=== PATIENT | male | born 1935 | race Two or more races ===

== ENCOUNTER 2017-02-01 15:23 | Inpatient (IN) | payer MEDICARE, BC ==
--- NOTE | 2017-02-01 15:55 | C.PDOC ---
History Of Present Illness 82 y/o male with Hx of HTN and DM presents to ED with complaints of general weakness and urine frequency for 2-3 days. As per at bedside patient was found on floor when she got home. At ED patient is febrile with a 102.0 temperature. Patient denies n/v/d, cp, sob, loc, toscano or any other complaints at this time. Time Seen by Provider: 02/01/17 15:41 History Per: Patient History/Exam Limitations: no limitations Onset/Duration Of Symptoms: Days Current Symptoms Are (Timing): Still Present Past Medical History Reviewed: Historical Data, Nursing Documentation, Vital Signs Vital Signs: Last Vital Signs Temp 99.4 F 02/01/17 18:49 Pulse 105 H 02/01/17 18:49 Resp 20 02/01/17 18:49 BP 152/80 H 02/01/17 18:49 Pulse Ox 98 02/01/17 18:49 - Medical History PMH: Diabetes, Fractures, HTN, Hypercholesterolemia Family History: States: Unknown Family Hx - Social History Hx Tobacco Use: No Hx Alcohol Use: No Hx Substance Use: No - Immunization History Hx Tetanus Toxoid Vaccination: No Hx Influenza Vaccination: Yes Hx Pneumococcal Vaccination: Yes Review Of Systems Constitutional: Positive for: Weakness. Negative for: Fever, Chills Cardiovascular: Negative for: Chest Pain Respiratory: Negative for: Shortness of Breath Gastrointestinal: Negative for: Nausea, Vomiting, Diarrhea Genitourinary: Positive for: Frequency. Negative for: Dysuria Musculoskeletal: Negative for: Back Pain Skin: Negative for: Rash Neurological: Negative for: Headache Physical Exam - Physical Exam Additional Physical Exam Comments: Constitutional: Generally weak Head: Normocephalic. Atraumatic. Eyes: PERRL. ENT: Dry mucous membranes. Neck: Supple. Cardiovascular: Tachycardia. Radial pulse 2+ bilaterally. Chest: No tenderness. Respiratory: Clear to auscultation bilaterally. GI: Soft. Nontender. Nondistended. Back: No CVA tenderness. Musculoskeletal: No tenderness or swelling of extremities. Skin: No rash. Warm Neurologic: Alert, no focal deficit. ED Course And Treatment - Laboratory Results Result Diagrams: 02/01/17 16:26 02/01/17 16:26 O2 Sat by Pulse Oximetry: 100 (RA) Pulse Ox Interpretation: Normal Medical Decision Making Medical Decision Making: EKG NSR Sinus tachy 125 bpm, no ST/T wave changes CXR no acute disease. Patient with UTI. Antibiotics and IVF given. HR improved to 110 and patient states he feels better. No hypotension at any point. Dr. Mckeon accepts to his service. Disposition - Disposition Disposition: HOSPITALIZED Disposition Time: 14:49 Condition: GUARDED - POA Core Measure Indicators: Code Sepsis - Clinical Impression Clinical Impression: UTI (urinary tract infection), Sepsis - Scribe Statement The provider has reviewed the documentation as recorded by the Kathi Ribera All medical record entries made by the Kathi were at my direction and personally dictated by me. I have reviewed the chart and agree that the record accurately reflects my personal performance of the history, physical exam, medical decision making, and the department course for this patient. I have also personally directed, reviewed, and agree with the discharge instructions and disposition.
[2017-02-01 16:26] LABS: VENOUS BLOOD GAS BASE EXCESS -4.8 mmol/L (0.0-2.0); VENOUS BLOOD GAS PCO2 34 mmHg (40-60); VENOUS BLOOD PH 7.37 (7.32-7.43)
[2017-02-01 16:32] LABS: BASO % 0.2 % (0.0-2.0); HEMATOCRIT 36.6 % (35.0-51.0); LYMPH # 0.2 K/uL (1.0-4.3); LYMPH % 2.1 % (20.0-40.0); MEAN CELL VOLUME 91.1 fL (80.0-94.0); MEAN CORPUSCULAR HGB CONC 32.9 g/dL (33.0-37.0); MEAN PLATELET VOLUME 8.2 fL (7.2-11.7); MONO # 0.5 K/uL (0.0-0.8); MONO % 4.1 % (0.0-10.0); PLATELET COUNT 146 K/uL (130-400); RED CELL DISTRIBUTION WIDTH 14.1 % (11.5-14.5); WHITE BLOOD COUNT 11.9 K/uL (4.8-10.8)
[2017-02-01 16:37] LABS: POTASSIUM 4.7 mmol/L (3.6-5.2)
[2017-02-01] MEDS ORDERED: Cefepime 1 GM in Sodium Chloride 0.9% 50 ML IVPB ONE (16:38)
[2017-02-01 16:40] LABS: ALB/GLOB RATIO 1.1 (1.0-2.1); BILIRUBIN,TOTAL 1.3 mg/dL (0.2-1.3); CALCIUM 9.5 mg/dl (8.6-10.4); TOTAL PROTEIN 7.4 g/dL (6.3-8.3)
[2017-02-01 16:41] LABS: MAGNESIUM 1.5 mg/dL (1.6-2.3)
[2017-02-01 16:58] LABS: INR 1.5
[2017-02-01] MEDS ORDERED: Cefepime 1 GM in Sodium Chloride 0.9% 100 ML IVPB ONE (17:00)
[2017-02-01] MEDS ORDERED: Vancomycin 1 GM 1 GM/250 ML BAG IVPB ONE (17:34)
[2017-02-01 18:01] LABS: BASOPHIL 1 % (0-2); NEUTROPHIL 85 % (50-75); TOTAL CELLS COUNTED 100
[2017-02-01 18:09] LABS: RBC URINE 2 /hpf (0-3); URINE BACTERIA MOD (<OCC); URINE BILIRUBIN NEGATIVE (NEGATIVE); URINE BLOOD 3+ (NEGATIVE); URINE COLOR Amber (YELLOW); URINE GLUCOSE (UA) 1+ mg/dL (Normal); URINE KETONE TRACE mg/dL (NEGATIVE); URINE LEUKOCYTE ESTERASE 1+ Leu/uL (Negative); URINE PROTEIN 2+ mg/dL (NEGATIVE); URINE UROBILINOGEN NORMAL mg/dL (0.2-1.0); WBC URINE 31 /hpf (0-5)
[2017-02-01 19:13] LABS: VENOUS BLOOD GAS PCO2 37 mmHg (40-60); VENOUS BLOOD PH 7.36 (7.32-7.43)
[2017-02-01] MEDS: Sodium Chloride 0.45% 1,000 ML IV SCH (20:51)
[2017-02-01] MEDS: (Novolin R) Insulin Human Regular 100 units/ml vial SC SCH (22:30)
--- NOTE | 2017-02-01 22:34 | CP.PCM.HP ---
History of Present Illness - History of Present Illness History of Present Illness: COMPREHENSIVE HISTORY & PHYSICAL EXAM HPI ADMITTED WITH CODE SEPSIS PT WAS FOUNG ON FLOOR BY DISORIENTED . W/U SHOWED UTI WITH TEMP. 102F AND DEHYDRATION . PT HAS PRIOUS H/O UTI S. PT RESPONDED WITH IV FLUIDS AND IV AB PAST HIST. HTN/DM/HIGH CHOLESTEROL /COPD PERSONAL HIST: Smoking. N Alcohol. N Allergy N Travel_- . FAMILY HIST : ROS : Constitutional CHILS WITH CMS Eyes: Negative for redness, swelling, itching, discharge, vision changes, blurry vision, double vision, glaucoma, cataracts, Ears: Negative for hearing loss, ringing, , tinnitus, vertigo Nose: Negative for rhinorrhea, stuffiness, sniffing, itching, postnasal drip, discoloration, nasal congestion and epistaxis. Throat: Negative for throat clearing, sore throat, hoarseness, difficulty swallowing and difficulty speaking. Respiratory: Negative for cough, , sputum production, chest tightness, wheezing, pleuritic chest pain ,daytime somnolence, chronic cough, hemoptysis, snoring at night, Cardiovascular: Negative for chest pain, palpitations, orthopnea, PND, Edema of legs, leg cramps, angina, claudication, , irregular heartbeat, Neurology: Negative for irritability, muscle weakness, numbness and tingling, seizures, tremors, migraines, slurred speech, syncope, memory loss, mood changes , recurrent headaches Gastrointestinal: Negative for difficulty swallowing, diarrhea, constipation, black stools, rectal bleeding, nausea, flatulence, reflux, poor appetite, changes in bowel habits, abdominal pain Genitourinary POS for frequent urination NO , hematuria, discharge, incontinence, urinary retention, POS frequent UTI, Psychiatric: Negative for depression, anxiety/panic, suicidal tendencies, Musculoskeletal: Negative for swollen joints, back pain, , neck pain, morning stiffness of joints, . Skin: Negative for rash, ulcers, itching, dry skin and pigmented lesions. P/E: Constitutional: Appears stated age and in no apparent distress. Head: Normocephalic. Ears: External ear canals patent without inflammation. Tympanic membranes intact with normal light reflex and landmark. Eyes: Pupils are central, bilaterally equal, symmetrical and reacts to light with normal movements and no icterus or pallor. Nose: External nares are patent. Mucosa is pink Mouth-Throat: Good general appearance and condition. No post-pharyngeal/oropharyngeal erythema and tonsillar hypertrophy. Good dental hygiene. Neck-Lymphatic: Neck is supple with normal ROM, no thyromegaly, lymph nodes or masses. JVD is normal with no carotid bruit. Lungs: Clear to percussion and auscultation with bilateral normal air entry. Cardiovascular: S1 and S2 are normal with no murmurs, gallops and rub. GI Exam: No hepatomegaly. Abdomen is soft and non-tender. No Organomegaly , masses or hernias are evident and bowel sounds are normal and active. Neurology: Higher function and all cranial nerves intact, with no gross motor or sensory deficit. Superficial and deep reflexes are normal with downwards planters. No cerebellar deficit with normal gait. Musculoskeletal: No tender spots with normal curvature of the spine with no swelling or restricted ROM of the small and large joints. Extremities: Homans sign absent. Intact pulses with no pitting edema, calf tenderness or skin color changes. Skin: No rash, eruptions or abnormal skin pigmentation LAB/RADIOLOGY: ASSESMENT : SEPSI WITH CEREBRAL DYSFUNCTION TRANSIENT SEC TO INFECTION DM/HTN COPD PLAN: SEE ORDERS Present on Admission - Present on Admission Any Indicators Present on Admission: No Past Patient History - Past Social History Smoking Status: Never Smoked - CARDIAC Hx Hypercholesterolemia: Yes Hx Hypertension: Yes - PULMONARY Hx Respiratory Disorders: No - NEUROLOGICAL Hx Neurological Disorder: No - HEENT Hx HEENT Problems: Yes Hx Cataracts: Yes - RENAL Hx Chronic Kidney Disease: No - ENDOCRINE/METABOLIC Hx Endocrine Disorders: Yes Hx Diabetes Mellitus Type 2: Yes - HEMATOLOGICAL/ONCOLOGICAL Hx Blood Disorders: No - INTEGUMENTARY Hx Dermatological Problems: No - MUSCULOSKELETAL/RHEUMATOLOGICAL Hx Fractures: Yes - GASTROINTESTINAL Hx Gastrointestinal Disorders: No - GENITOURINARY/GYNECOLOGICAL Hx Genitourinary Disorders: Yes Hx Incontinence: Yes - PSYCHIATRIC Hx Substance Use: No - SURGICAL HISTORY Hx Breast Biopsy: Yes Hx Joint Replacement: Yes Hx Musculoskeletal Surgery: Yes Other/Comment: Hip and bilateral knee replacement - ANESTHESIA Hx Anesthesia: Yes Hx Anesthesia Reactions: No Hx Malignant Hyperthermia: No Meds Allergies/Adverse Reactions: Allergies Allergy/AdvReac Type Severity Reaction Status Date / Time No Known Allergies Allergy Verified 02/01/17 15:47 Results - Vital Signs Recent Vital Signs: Last Vital Signs Temp 101.2 F H 02/01/17 20:52 Pulse 133 H 02/01/17 20:42 Resp 30 H 02/01/17 20:42 BP 163/96 H 02/01/17 20:42 Pulse Ox 97 02/01/17 20:42 - Labs Result Diagrams: 02/02/17 07:24 02/02/17 07:24 Labs: Laboratory Results - last 24 hr 02/01/17 02/01/17 19:05 22:26 pO2 17 L VBG pH 7.36 VBG pCO2 37 L VBG HCO3 19.8 VBG Total CO2 22.0 VBG O2 Sat (Calc) 26.9 L VBG Base Excess -4.0 L VBG Potassium 4.0 Sodium 139.0 Chloride 108.0 H Glucose 289 H Lactate 2.8 H POC Glucose (mg/dL) 219 H Venous Blood Potassium 4.0
--- NOTE | 2017-02-01 23:51 | CP.PCM.CON ---
History of Present Illness - History of Present Illness History of Present Illness: INFECTIOUS DISEASE CONSULT: DICTATED # DICTATION [id number] SEE REPORTS. Past Patient History - Past Social History Smoking Status: Never Smoked - CARDIAC Hx Hypercholesterolemia: Yes Hx Hypertension: Yes - PULMONARY Hx Respiratory Disorders: No - NEUROLOGICAL Hx Neurological Disorder: No - HEENT Hx HEENT Problems: Yes Hx Cataracts: Yes - RENAL Hx Chronic Kidney Disease: No - ENDOCRINE/METABOLIC Hx Endocrine Disorders: Yes Hx Diabetes Mellitus Type 2: Yes - HEMATOLOGICAL/ONCOLOGICAL Hx Blood Disorders: No - INTEGUMENTARY Hx Dermatological Problems: No - MUSCULOSKELETAL/RHEUMATOLOGICAL Hx Fractures: Yes - GASTROINTESTINAL Hx Gastrointestinal Disorders: No - GENITOURINARY/GYNECOLOGICAL Hx Genitourinary Disorders: Yes Hx Incontinence: Yes - PSYCHIATRIC Hx Substance Use: No - SURGICAL HISTORY Hx Breast Biopsy: Yes Hx Joint Replacement: Yes Hx Musculoskeletal Surgery: Yes Other/Comment: Hip and bilateral knee replacement - ANESTHESIA Hx Anesthesia: Yes Hx Anesthesia Reactions: No Hx Malignant Hyperthermia: No Meds Allergies/Adverse Reactions: Allergies Allergy/AdvReac Type Severity Reaction Status Date / Time No Known Allergies Allergy Verified 02/01/17 15:47 - Medications Medications: Current Medications Acetaminophen (Tylenol 325mg Tab) 975 mg PO ONCE PRN PRN Reason: Fever >100.4 F Last Admin: 02/01/17 16:15 Dose: 975 mg Acetaminophen (Tylenol 325mg Tab) 650 mg PO Q6 PRN PRN Reason: Fever >100.4 F Last Admin: 02/01/17 20:52 Dose: 650 mg Amlodipine Besylate (Norvasc) 5 mg PO DAILY [facility] Aspirin (Ecotrin) 81 mg PO DAILY [facility] Heparin Sodium (Porcine) (Heparin) 5,000 units SC BID [facility] Home Med (Metformin [Glucophage]) 1,000 mg PO DAILY [facility] Home Med (Pravastatin Sodium [Pravachol]) 10 mg PO DAILY [facility] Home Med (Ranitidine Hcl [Ranitidine Hcl]) 300 mg PO DAILY [facility] Ceftriaxone Sodium (Rocephin Iv 1 Gm Duplex) 50 mls @ 100 mls/hr IVPB DAILY [facility] Sodium Chloride (Sodium Chloride 0.45%) 1,000 mls @ 80 mls/hr IV .[id number] [facility] Last Admin: 02/01/17 20:51 Dose: 80 mls/hr Insulin Human Regular (Novolin R) 0 unit SC ACHS [facility] PRN Reason: Protocol Lisinopril (Zestril) 40 mg PO DAILY [facility] Pantoprazole Sodium (Protonix Ec Tab) 40 mg PO DAILY [facility] Terazosin HCl (Hytrin) 5 mg PO DAILY [facility] Results - Vital Signs Recent Vital Signs: Last Vital Signs Temp 100.7 F H 02/01/17 22:38 Pulse 126 H 02/01/17 22:40 Resp 20 02/01/17 22:38 BP 144/84 02/01/17 22:38 Pulse Ox 98 02/01/17 22:38 - Labs Result Diagrams: 02/02/17 07:24 02/02/17 07:24 Labs: Laboratory Results - last 24 hr 02/01/17 02/01/17 19:05 22:26 pO2 17 L VBG pH 7.36 VBG pCO2 37 L VBG HCO3 19.8 VBG Total CO2 22.0 VBG O2 Sat (Calc) 26.9 L VBG Base Excess -4.0 L VBG Potassium 4.0 Sodium 139.0 Chloride 108.0 H Glucose 289 H Lactate 2.8 H POC Glucose (mg/dL) 219 H Venous Blood Potassium 4.0
[2017-02-01] MEDS ORDERED: Aluminum Hydroxide/Magnesium Hydroxide Susp (30 mL) PO PRN (23:54)
[2017-02-02] MEDS ORDERED: Albuterol-Ipratrop 3 mg / 0.5 (3 ml) UD INH STA (06:37)
--- NOTE | 2017-02-02 06:42 | CP.PCM.PN ---
Subjective - Date & Time of Evaluation Date of Evaluation: 02/02/17 Time of Evaluation: 06:38 - Subjective Subjective: Complaining of shortness of breath. Says it has gotten worse over night. Objective - Vital Signs/Intake and Output Vital Signs (last 24 hours): Temp Pulse Resp BP Pulse Ox 98.3 F 107 H 20 165/80 H 97 02/02/17 04:30 02/02/17 04:30 02/02/17 04:30 02/02/17 04:30 02/02/17 04:30 Intake and Output: 02/01/17 02/02/17 18:59 06:59 Intake Total 320 Output Total 200 Balance 120 - Medications Medications: Current Medications Acetaminophen (Tylenol 325mg Tab) 975 mg PO ONCE PRN PRN Reason: Fever >100.4 F Last Admin: 02/01/17 16:15 Dose: 975 mg Acetaminophen (Tylenol 325mg Tab) 650 mg PO Q6 PRN PRN Reason: Fever >100.4 F Last Admin: 02/02/17 06:15 Dose: 650 mg Albuterol/Ipratropium (Duoneb 3 Mg/0.5 Mg (3 Ml) Ud) 3 ml INH RSTAT STA Stop: 02/02/17 06:38 Amlodipine Besylate (Norvasc) 5 mg PO DAILY [facility] Aspirin (Ecotrin) 81 mg PO DAILY [facility] Heparin Sodium (Porcine) (Heparin) 5,000 units SC BID [facility] Home Med (Metformin [Glucophage]) 1,000 mg PO DAILY [facility] Home Med (Pravastatin Sodium [Pravachol]) 10 mg PO DAILY [facility] Home Med (Ranitidine Hcl [Ranitidine Hcl]) 300 mg PO DAILY [facility] Ceftriaxone Sodium (Rocephin Iv 1 Gm Duplex) 50 mls @ 100 mls/hr IVPB DAILY [facility] Sodium Chloride (Sodium Chloride 0.45%) 1,000 mls @ 80 mls/hr IV .[id number] [facility] Last Admin: 02/01/17 20:51 Dose: 80 mls/hr Insulin Human Regular (Novolin R) 0 unit SC ACHS [facility] PRN Reason: Protocol Last Admin: 02/01/17 22:30 Dose: Not Given Lisinopril (Zestril) 40 mg PO DAILY [facility] Pantoprazole Sodium (Protonix Ec Tab) 40 mg PO DAILY [facility] Terazosin HCl (Hytrin) 5 mg PO DAILY [facility] - Labs Labs: PT 16.8 SECONDS (9.7-12.2) H 02/01/17 16:26 INR 1.5 02/01/17 16:26 APTT 28 SECONDS (21-34) 02/01/17 16:26 - Respiratory Exam Respiratory Exam: Decreased Breath Sounds, Wheezes Assessment and Plan - Assessment and Plan (Free Text) Plan: 1.) Wheezing and shortness of breath * Duoneb 3ml
[2017-02-02 07:37] LABS: BASO % 0.2 % (0.0-2.0); HEMATOCRIT 32.9 % (35.0-51.0); LYMPH # 0.2 K/uL (1.0-4.3); LYMPH % 2.9 % (20.0-40.0); MEAN CELL VOLUME 90.8 fL (80.0-94.0); MEAN CORPUSCULAR HEMOGLOBIN 31.1 pg (27.0-31.0); MEAN CORPUSCULAR HGB CONC 34.2 g/dL (33.0-37.0); MEAN PLATELET VOLUME 8.4 fL (7.2-11.7); MONO # 0.3 K/uL (0.0-0.8); MONO % 3.8 % (0.0-10.0); RED CELL DISTRIBUTION WIDTH 13.9 % (11.5-14.5); WHITE BLOOD COUNT 8.3 K/uL (4.8-10.8)
[2017-02-02 07:48] LABS: PLATELET COUNT 117 K/uL (130-400)
[2017-02-02 08:04] LABS: POTASSIUM 3.9 mmol/L (3.6-5.2)
[2017-02-02 08:06] LABS: BILIRUBIN,DIRECT 0.4 mg/dL (0.0-0.4); BILIRUBIN,TOTAL 1.3 mg/dL (0.2-1.3); TOTAL PROTEIN 6.5 g/dL (6.3-8.3)
[2017-02-02 08:07] LABS: CALCIUM 8.4 mg/dl (8.6-10.4)
[2017-02-02] MEDS: (Novolin R) Insulin Human Regular 100 units/ml vial SC SCH ×4 (08:30→22:27)
[2017-02-02] MEDS: Sodium Chloride 0.45% 1,000 ML IV SCH ×2 (09:34→22:29)
[2017-02-02] MEDS: Pantoprazole 40 mg EC Tab PO SCH (09:41)
[2017-02-02] MEDS ORDERED: cefTRIAXone IV 1 gm in Dextros 50 ML IVPB SCH (10:00)
[2017-02-02 11:49] LABS: NEUTROPHIL 91 % (50-75); TOTAL CELLS COUNTED 100
--- NOTE | 2017-02-02 13:40 | RAD ---
HISTORY: Sepsis Patient COMPARISON: No prior. FINDINGS: LUNGS: No active pulmonary disease. PLEURA: No significant pleural effusion identified, no pneumothorax apparent. CARDIOVASCULAR: Normal. OSSEOUS STRUCTURES: No significant abnormalities. VISUALIZED UPPER ABDOMEN: Normal. OTHER FINDINGS: None. IMPRESSION: No active disease.
--- NOTE | 2017-02-02 14:40 | CP.PCM.PN ---
Subjective - Date & Time of Evaluation Date of Evaluation: 02/02/17 Time of Evaluation: 14:38 - Subjective Subjective: CHIEF COMPLAINTS TODAY : MORE ALERT HAD SOB IN AM AND RESPONDED WITH NEBULISER ROS. HEENT : N. Resp : No cough, wheezing ,pleuritic CP ,or hemoptysis Cardio : No anginal CP, PND, orthopnea, palpitation GI : No abd.pain, n/v ,diarrhea or GI bleeding . PRODUCTION POTTER : No headache, vertigo, focal deficit. Musculoskel : No joint swelling , Derm : No rash Psych : Normal affect. Ext : No swelling ,calf pain PE. Pt. is alert awake in no distress. V.S As noted in the chart Head ,ear nose,throat and eyes : Normal. Neck : Supple with normal carotids. Lungs: Clear air entry. Heart : S1 & S2 normal with S4. No murmur. Abd : Soft non tender with normal bowel sounds. Neuro : Moves all ext. with no localized deficit. Ext : No edema with intact pulses.Non tender calves Derm : No rashes or decubitus ulcer. LABS/RADIOLOGY: BLOOD CULTURE POS GRAM -VE RODS ASSESSMENT/PLAN : IV AB PER ID NUTRITION D/W FAMILY Objective - Vital Signs/Intake and Output Vital Signs (last 24 hours): Temp Pulse Resp BP Pulse Ox 99.4 F 106 H 20 148/76 96 02/02/17 07:45 02/02/17 07:45 02/02/17 07:45 02/02/17 07:45 02/02/17 07:45 - Medications Medications: Current Medications Acetaminophen (Tylenol 325mg Tab) 975 mg PO ONCE PRN PRN Reason: Fever >100.4 F Last Admin: 02/01/17 16:15 Dose: 975 mg Acetaminophen (Tylenol 325mg Tab) 650 mg PO Q6 PRN PRN Reason: Fever >100.4 F Last Admin: 02/02/17 06:15 Dose: 650 mg Amlodipine Besylate (Norvasc) 5 mg PO DAILY [facility] Last Admin: 02/02/17 09:42 Dose: 5 mg Aspirin (Ecotrin) 81 mg PO DAILY [facility] Last Admin: 02/02/17 09:42 Dose: 81 mg Heparin Sodium (Porcine) (Heparin) 5,000 units SC BID [facility] Last Admin: 02/02/17 09:41 Dose: 5,000 units Home Med (Metformin [Glucophage]) 1,000 mg PO DAILY [facility] Last Admin: 02/02/17 11:00 Dose: Not Given Home Med (Pravastatin Sodium [Pravachol]) 10 mg PO DAILY [facility] Last Admin: 02/02/17 11:00 Dose: Not Given Home Med (Ranitidine Hcl [Ranitidine Hcl]) 300 mg PO DAILY [facility] Last Admin: 02/02/17 11:00 Dose: Not Given Ceftriaxone Sodium (Rocephin Iv 1 Gm Duplex) 50 mls @ 100 mls/hr IVPB DAILY [facility] Last Admin: 02/02/17 09:41 Dose: 100 mls/hr Sodium Chloride (Sodium Chloride 0.45%) 1,000 mls @ 80 mls/hr IV .[id number] [facility] Last Admin: 02/02/17 09:34 Dose: Not Given Insulin Human Regular (Novolin R) 0 unit SC ACHS [facility] PRN Reason: Protocol Last Admin: 02/02/17 12:30 Dose: 1 unit Lisinopril (Zestril) 40 mg PO DAILY [facility] Last Admin: 02/02/17 09:42 Dose: 40 mg Pantoprazole Sodium (Protonix Ec Tab) 40 mg PO DAILY [facility] Last Admin: 02/02/17 09:41 Dose: 40 mg Terazosin HCl (Hytrin) 5 mg PO DAILY [facility] Last Admin: 02/02/17 09:42 Dose: 5 mg - Labs Labs: 02/02/17 07:24 02/02/17 07:24 PT 16.8 SECONDS (9.7-12.2) H 02/01/17 16:26 INR 1.5 02/01/17 16:26 APTT 28 SECONDS (21-34) 02/01/17 16:26
[2017-02-02] MEDS ORDERED: Aztreonam 1 GM in Sodium Chloride 0.9% 100 ML IVPB ONE (17:00)
--- NOTE | 2017-02-02 18:57 | CP.PCM.PN ---
Subjective - Date & Time of Evaluation Date of Evaluation: 02/02/17 Time of Evaluation: 18:57 - Subjective Subjective: TEMP DOWN,99.6 +VE SOB IN AM RESPONDED TO NEBULIZER TREATMENT. ON O2 BY NASAL - CANNULA, PULSE OX 97% C/O FREQUENCY Objective - Vital Signs/Intake and Output Vital Signs (last 24 hours): Temp Pulse Resp BP Pulse Ox 99.6 F 124 H 20 144/74 97 02/02/17 15:48 02/02/17 16:41 02/02/17 15:48 02/02/17 16:41 02/02/17 15:48 Intake and Output: 02/02/17 02/02/17 06:59 18:59 Intake Total 320 350 Output Total 200 200 Balance 120 150 - Medications Medications: Current Medications Acetaminophen (Tylenol 325mg Tab) 975 mg PO ONCE PRN PRN Reason: Fever >100.4 F Last Admin: 02/01/17 16:15 Dose: 975 mg Acetaminophen (Tylenol 325mg Tab) 650 mg PO Q6 PRN PRN Reason: Fever >100.4 F Last Admin: 02/02/17 06:15 Dose: 650 mg Amlodipine Besylate (Norvasc) 5 mg PO DAILY [facility] Last Admin: 02/02/17 09:42 Dose: 5 mg Aspirin (Ecotrin) 81 mg PO DAILY [facility] Last Admin: 02/02/17 09:42 Dose: 81 mg Famotidine (Pepcid) 20 mg PO DAILY [facility] Heparin Sodium (Porcine) (Heparin) 5,000 units SC BID [facility] Last Admin: 02/02/17 09:41 Dose: 5,000 units Home Med (Metformin [Glucophage]) 1,000 mg PO DAILY [facility] Ceftriaxone Sodium (Rocephin Iv 1 Gm Duplex) 50 mls @ 100 mls/hr IVPB DAILY [facility] Last Admin: 02/02/17 09:41 Dose: 100 mls/hr Sodium Chloride (Sodium Chloride 0.45%) 1,000 mls @ 80 mls/hr IV .[id number] [facility] Last Admin: 02/02/17 09:34 Dose: Not Given Insulin Human Regular (Novolin R) 0 unit SC ACHS [facility] PRN Reason: Protocol Last Admin: 02/02/17 18:08 Dose: 4 unit Lisinopril (Zestril) 40 mg PO DAILY [facility] Last Admin: 02/02/17 09:42 Dose: 40 mg Metoprolol Tartrate (Lopressor) 50 mg PO Q12 [facility] Last Admin: 02/02/17 16:40 Dose: 50 mg Pantoprazole Sodium (Protonix Ec Tab) 40 mg PO DAILY [facility] Last Admin: 02/02/17 09:41 Dose: 40 mg Rosuvastatin Calcium (Crestor) 2.5 mg PO [facility] Terazosin HCl (Hytrin) 5 mg PO DAILY [facility] Last Admin: 02/02/17 09:42 Dose: 5 mg - Labs Labs: 02/02/17 07:24 02/02/17 07:24 PT 16.8 SECONDS (9.7-12.2) H 02/01/17 16:26 INR 1.5 02/01/17 16:26 APTT 28 SECONDS (21-34) 02/01/17 16:26 - Constitutional Appears: No Acute Distress - Eye Exam Eye Exam: EOMI, PERRL - ENT Exam ENT Exam: Normal Oropharynx - Neck Exam Neck Exam: Normal Inspection - Respiratory Exam Respiratory Exam: Prolonged Expiratory Phase, Wheezes - Cardiovascular Exam Cardiovascular Exam: REGULAR RHYTHM, +S1, +S2 - GI/Abdominal Exam GI & Abdominal Exam: Soft, Normal Bowel Sounds. absent: Organomegaly - Extremities Exam Extremities Exam: Normal Capillary Refill. absent: Calf Tenderness, Pedal Edema - Neurological Exam Neurological Exam: Awake, CN II-XII Intact, Oriented x3, Reflexes Normal - Psychiatric Exam Psychiatric exam: Normal Mood - Skin Skin Exam: Normal Color, Warm Assessment and Plan (1) Sepsis Assessment & Plan: BLOOD CULTURE +VE GNR URINE CULTURE +VE GNR DC IV ROCEPHIN PT. GIVEN AZACTAM 1GM IVPB X1 STAT. 02/02/17 START IV PRIMAXIN 500MG IVPB Q 8HRLY.02/02/17 Status: Acute (2) UTI (urinary tract infection) Assessment & Plan: URINE CULTURE +VE GRAM-NEGATIVE SHELLEY. iDENTIFICATION PENDING. pATIENT STARTED ON iv pRIMAXIN 500 MG EVERY 8 HOURLY 1 DOSE aZACTAM GIVEN 1 G. fOLLOW-UP CULTURES TO ADJUST ANTIBIOTICS. Status: Acute (3) HTN (hypertension) Status: Acute (4) Diabetes mellitus Status: Acute
[2017-02-02] MEDS: Albuterol-Ipratrop 3 mg / 0.5 (3 ml) UD INH SCH (19:58)
[2017-02-02] MEDS: Rosuvastatin Calcium 2.5 mg Tab PO SCH (21:04)
--- NOTE | 2017-02-02 21:23 | CON ---
DATE: 02/01/2017 REQUESTING PHYSICIAN: Dr. Mckeon. REASON FOR CONSULTATION: Sepsis and shortness of breath. HISTORY OF PRESENT ILLNESS: The patient is an 82-year-old male with a history of hypertension, diabe kevin mellitus, hypercholesterolemia, and a history of fractures who presents to the [facility] ER with complaints of generalized weakness and frequency of urine for the past 2-3 days. History obtai katherine mainly from the chart as well as from the patient who states that as per , the patient was fo und on the floor when she got home. The patient was brought to the ER and was found to be febrile to 102.0. Also, the patient's blood pressure was 152/80 with a rapid pulse and tachycardia. The patie nt had a code sepsis as temperature persisted up to 102 and the patient was appropriately cultured an d given vancomycin 1 gram 1 dose and also Maxipime 1 gram 1 dose. History is very sketchy as the pat ient unable to give much details. The patient also had leucocytosis with serum lactate to %. A lso, his renal functions were found to be elevated with creatinine of 2.5 and BUN of 35. Urinalysis was hazy with 3+ leukocytes, also RBCs 2, moderate WBCs and moderate bacteria. Blood sugars were in the range of 219 and 360. Infectious disease consultation therefore requested for status post code s epsis for possible UTI and septic shock. PAST MEDICAL HISTORY: As above; diabetes mellitus, history of hypertension, hypercholesterolemia, hi story of fractures. FAMILY HISTORY: Unremarkable, unknown. SOCIAL HISTORY: Denies history of tobacco, alcohol use, denies any substance abuse. Lives with his . IMMUNIZATION HISTORY: He is up-to-date on influenza and pneumococcal vaccination. Tetanus toxoid, n ot sure. REVIEW OF SYSTEMS: CONSTITUTIONAL: The patient complains of generalized weakness, also fever and chills. CARDIOVASCULAR: Denies any chest pains. RESPIRATORY: Complains of shortness of breath. GASTROINTESTINAL: Denies any nausea, vomiting, or diarrhea. GENITOURINARY: Complains of frequency. Denies any dysuria or hematuria. Denies history of kidney s tones. MUSCULOSKELETAL: Denies any history of back pain or joint pains, no rashes. NEUROLOGICAL: Denies any headaches or seizure disorder. PHYSICAL EXAMINATION: GENERAL: The patient is awake and responsive. VITAL SIGNS: T-max of 102.4, blood pressure 152/80, respirations 20, pulse of 105, pulse ox is 98%. HEENT: Pupils equal, reactive to light and accommodation. Extraocular movements full. Fundus negat edward. Sclerae nonicteric. Conjunctivae normal. NECK: Appears to be supple. JVP not elevated. LUNGS: Fair air entry. CARDIOVASCULAR SYSTEM: Sinus tachycardia. No murmur or gallop. ABDOMEN: Obese, bowel sounds are present, nontender, nondistended. EXTREMITIES: No edema, no swelling. No calf tenderness. SKIN: Slightly cold to touch. LABORATORY DATA: WBC 11.9, H and H of 12.0 and 36, platelets 146. Creatinine of 2.5, BUN 35, blood sugar 360. Pulse ox was 100% on room air. IMPRESSION: 1. Status post code sepsis, probable urosepsis. 2. History of hypertension. 3. Diabetes mellitus. PLAN: Moscoso cultures. We will get SED rate, C-reactive proteins, UA and urine cultures. The patient started on IV Rocephin 1 gram once a day daily. Will continue that for now. The patient already got 1 dose of vancomycin 1 g and Maxipime 1 gram in the ER. Follow up cultures to adjust antibiotics. Will follow along with you. Thank you very much for allowing me to participate in the care of your patient. Will follow. Shaun Jung MD cc: [id number] TT: 02/02/2017 21:22:38 Confirmation # [id number] Dictation # [id number] omkar
[2017-02-03] MEDS: Albuterol-Ipratrop 3 mg / 0.5 (3 ml) UD INH SCH ×6 (01:03→19:19)
[2017-02-03 07:40] LABS: BASO % 0.4 % (0.0-2.0); EOS % 0.5 % (0.0-4.0); HEMATOCRIT 29.4 % (35.0-51.0); LYMPH # 0.3 K/uL (1.0-4.3); LYMPH % 4.6 % (20.0-40.0); MEAN CELL VOLUME 89.8 fL (80.0-94.0); MEAN CORPUSCULAR HEMOGLOBIN 30.4 pg (27.0-31.0); MEAN CORPUSCULAR HGB CONC 33.8 g/dL (33.0-37.0); MEAN PLATELET VOLUME 8.4 fL (7.2-11.7); MONO # 0.4 K/uL (0.0-0.8); MONO % 6.4 % (0.0-10.0); PLATELET COUNT 114 K/uL (130-400); RED CELL DISTRIBUTION WIDTH 14.1 % (11.5-14.5); WHITE BLOOD COUNT 6.2 K/uL (4.8-10.8)
[2017-02-03 07:49] LABS: POTASSIUM 4.1 mmol/L (3.6-5.2)
[2017-02-03 07:51] LABS: ALB/GLOB RATIO 0.9 (1.0-2.1); BILIRUBIN,TOTAL 1.2 mg/dL (0.2-1.3); TOTAL PROTEIN 6.4 g/dL (6.3-8.3)
[2017-02-03 07:52] LABS: CALCIUM 8.1 mg/dl (8.6-10.4)
[2017-02-03] MEDS: (Novolin R) Insulin Human Regular 100 units/ml vial SC SCH ×4 (08:30→21:58)
[2017-02-03] MEDS: Pantoprazole 40 mg EC Tab PO SCH (10:10)
[2017-02-03] MEDS: Sodium Chloride 0.45% 1,000 ML IV SCH ×2 (10:15→22:06)
[2017-02-03 10:25] LABS: NEUTROPHIL 87 % (50-75); TOTAL CELLS COUNTED 100
--- NOTE | 2017-02-03 14:35 | CP.PCM.PN ---
Subjective - Date & Time of Evaluation Date of Evaluation: 02/03/17 Time of Evaluation: 14:34 - Subjective Subjective: INTERMITTENT S. TACHY FROM MULTIPLE REASONS RESPONDS TO PO LOPRESSOR BLD CULTURE POS FOR SERRSTIA IV AB CH. RENAL INSUFFICIENCY Objective - Vital Signs/Intake and Output Vital Signs (last 24 hours): Temp Pulse Resp BP Pulse Ox 98 F 96 H 20 132/68 99 02/03/17 09:39 02/03/17 11:52 02/03/17 09:39 02/03/17 09:39 02/03/17 11:52 Intake and Output: 02/03/17 02/03/17 11:59 23:59 Output Total 250 Balance -250 - Medications Medications: Current Medications Acetaminophen (Tylenol 325mg Tab) 650 mg PO Q6 PRN PRN Reason: Fever >100.4 F Last Admin: 02/02/17 06:15 Dose: 650 mg Albuterol/Ipratropium (Duoneb 3 Mg/0.5 Mg (3 Ml) Ud) 3 ml INH RQ4 [facility] Last Admin: 02/03/17 11:35 Dose: 3 ml Amlodipine Besylate (Norvasc) 5 mg PO DAILY [facility] Last Admin: 02/03/17 10:10 Dose: 5 mg Aspirin (Ecotrin) 81 mg PO DAILY [facility] Last Admin: 02/03/17 10:10 Dose: 81 mg Famotidine (Pepcid) 20 mg PO DAILY [facility] Heparin Sodium (Porcine) (Heparin) 5,000 units SC BID [facility] Last Admin: 02/03/17 10:10 Dose: 5,000 units Sodium Chloride (Sodium Chloride 0.45%) 1,000 mls @ 80 mls/hr IV .[id number] [facility] Last Admin: 02/03/17 10:15 Dose: 80 mls/hr Imipenem/Cilastatin Sodium 500 (mg/ Sodium Chloride) 100 mls @ 100 mls/hr IVPB Q8H [facility] Last Admin: 02/03/17 12:54 Dose: 100 mls/hr Insulin Human Regular (Novolin R) 0 unit SC ACHS [facility] PRN Reason: Protocol Last Admin: 02/03/17 12:30 Dose: 4 unit Lisinopril (Zestril) 40 mg PO DAILY [facility] Last Admin: 02/03/17 10:17 Dose: 40 mg Metformin HCl (Glucophage) 1,000 mg PO DAILY [facility] Metoprolol Tartrate (Lopressor) 50 mg PO Q12 [facility] Last Admin: 02/03/17 10:11 Dose: Not Given Pantoprazole Sodium (Protonix Ec Tab) 40 mg PO DAILY [facility] Last Admin: 02/03/17 10:10 Dose: 40 mg Rosuvastatin Calcium (Crestor) 2.5 mg PO HS [facility] Last Admin: 02/02/17 21:04 Dose: 2.5 mg Terazosin HCl (Hytrin) 5 mg PO HS [facility] - Labs Labs: 02/03/17 07:27 02/03/17 07:27 PT 16.8 SECONDS (9.7-12.2) H 02/01/17 16:26 INR 1.5 02/01/17 16:26 APTT 28 SECONDS (21-34) 02/01/17 16:26
--- NOTE | 2017-02-03 20:31 | CP.PCM.PN ---
Subjective - Date & Time of Evaluation Date of Evaluation: 02/03/17 Time of Evaluation: 20:30 - Subjective Subjective: TEMPERATURE 99.6. LESS SHORT OF BREATH. oN 2 l NASAL CANNULA OXYGEN. pULSE OX 97%. LABS REVIEWED URINE CULTURE POSITIVE FOR ESCHERICHIA COLI. BLOOD CULTURE-GNR , IDENTIFICATION PENDING. H/H 9.9/29.4 PLT 114K CREATININE 2.2/bun 34 LFTS AST V114, ALT N , AP N Objective - Vital Signs/Intake and Output Vital Signs (last 24 hours): Temp Pulse Resp BP Pulse Ox 99.0 F 97 H 22 132/78 98 02/03/17 16:00 02/03/17 16:00 02/03/17 16:00 02/03/17 16:00 02/03/17 16:00 Intake and Output: 02/03/17 02/04/17 18:59 06:59 Intake Total 1040 Output Total 500 Balance 540 - Medications Medications: Current Medications Acetaminophen (Tylenol 325mg Tab) 650 mg PO Q6 PRN PRN Reason: Fever >100.4 F Last Admin: 02/02/17 06:15 Dose: 650 mg Albuterol/Ipratropium (Duoneb 3 Mg/0.5 Mg (3 Ml) Ud) 3 ml INH RQ4 [facility] Last Admin: 02/03/17 19:19 Dose: 3 ml Amlodipine Besylate (Norvasc) 5 mg PO DAILY [facility] Last Admin: 02/03/17 10:10 Dose: 5 mg Aspirin (Ecotrin) 81 mg PO DAILY [facility] Last Admin: 02/03/17 10:10 Dose: 81 mg Famotidine (Pepcid) 20 mg PO DAILY [facility] Heparin Sodium (Porcine) (Heparin) 5,000 units SC BID [facility] Last Admin: 02/03/17 10:10 Dose: 5,000 units Sodium Chloride (Sodium Chloride 0.45%) 1,000 mls @ 80 mls/hr IV .[id number] [facility] Last Admin: 02/03/17 10:15 Dose: 80 mls/hr Imipenem/Cilastatin Sodium 500 (mg/ Sodium Chloride) 100 mls @ 100 mls/hr IVPB Q8H [facility] Last Admin: 02/03/17 12:54 Dose: 100 mls/hr Insulin Human Regular (Novolin R) 0 unit SC ACHS [facility] PRN Reason: Protocol Last Admin: 02/03/17 18:09 Dose: 4 unit Lisinopril (Zestril) 40 mg PO DAILY [facility] Last Admin: 02/03/17 10:17 Dose: 40 mg Metformin HCl (Glucophage) 1,000 mg PO DAILY [facility] Metoprolol Tartrate (Lopressor) 50 mg PO Q12 [facility] Last Admin: 02/03/17 10:11 Dose: Not Given Pantoprazole Sodium (Protonix Ec Tab) 40 mg PO DAILY [facility] Last Admin: 02/03/17 10:10 Dose: 40 mg Rosuvastatin Calcium (Crestor) 2.5 mg PO HS [facility] Last Admin: 02/02/17 21:04 Dose: 2.5 mg Terazosin HCl (Hytrin) 5 mg PO HS [facility] - Labs Labs: 02/03/17 07:27 02/03/17 07:27 PT 16.8 SECONDS (9.7-12.2) H 02/01/17 16:26 INR 1.5 02/01/17 16:26 APTT 28 SECONDS (21-34) 02/01/17 16:26 - Constitutional Appears: No Acute Distress - Head Exam Head Exam: NORMAL INSPECTION - Eye Exam Eye Exam: EOMI - ENT Exam ENT Exam: Normal Oropharynx - Neck Exam Neck Exam: Normal Inspection - Respiratory Exam Respiratory Exam: Decreased Breath Sounds - Cardiovascular Exam Cardiovascular Exam: REGULAR RHYTHM, +S1, +S2 - GI/Abdominal Exam GI & Abdominal Exam: Soft, Normal Bowel Sounds. absent: Tenderness - Extremities Exam Extremities Exam: Normal Capillary Refill. absent: Calf Tenderness, Pedal Edema - Back Exam Back Exam: absent: CVA tenderness (L), CVA tenderness (R) - Neurological Exam Neurological Exam: Awake, CN II-XII Intact, Oriented x3, Reflexes Normal - Psychiatric Exam Psychiatric exam: Normal Mood - Skin Skin Exam: Pallor Assessment and Plan (1) Sepsis Assessment & Plan: BLOOD CULTURE +VE GNR URINE CULTURE +VE E.COLI PT. GIVEN AZACTAM 1GM IVPB X1 STAT. 02/02/17 CONTINUE IV PRIMAXIN 500MG IVPB Q 8HRLY.02/02/17 F/U CULTURES AND ADJUST ABX. Status: Acute (2) UTI (urinary tract infection) Assessment & Plan: URINE CULTURE +VE E.COLI. S -PRIMAXIN, AZACTAM . cONTINUE iv ANTIBIOTICS. WILL ORDER CT OF THE ABDOMEN AND PELVIS W/O PO OR IV CONTRAST R/O STONES VS HYDRONEPHROSIS. Status: Acute (3) HTN (hypertension) Status: Acute (4) Diabetes mellitus Assessment & Plan: PER PMD. Status: Acute (5) Renal insufficiency Assessment & Plan: MONITOR RENAL FUNCTIONS IV FLUIDS ASPER PMD. Status: Acute
[2017-02-03] MEDS: Rosuvastatin Calcium 2.5 mg Tab PO SCH (21:58)
[2017-02-04] MEDS: Albuterol-Ipratrop 3 mg / 0.5 (3 ml) UD INH SCH ×7 (00:37→19:02)
[2017-02-04 07:38] LABS: BASO % 0.7 % (0.0-2.0); EOS # 0.1 K/uL (0.0-0.7); HEMATOCRIT 28.1 % (35.0-51.0); LYMPH # 0.4 K/uL (1.0-4.3); LYMPH % 6.8 % (20.0-40.0); MEAN CELL VOLUME 90.4 fL (80.0-94.0); MEAN CORPUSCULAR HEMOGLOBIN 30.6 pg (27.0-31.0); MEAN CORPUSCULAR HGB CONC 33.9 g/dL (33.0-37.0); MEAN PLATELET VOLUME 8.6 fL (7.2-11.7); MONO # 0.6 K/uL (0.0-0.8); PLATELET COUNT 118 K/uL (130-400); RED CELL DISTRIBUTION WIDTH 14.5 % (11.5-14.5); WHITE BLOOD COUNT 5.6 K/uL (4.8-10.8)
[2017-02-04 07:49] LABS: POTASSIUM 4.1 mmol/L (3.6-5.2)
[2017-02-04 07:51] LABS: ALB/GLOB RATIO 0.8 (1.0-2.1); TOTAL PROTEIN 6.1 g/dL (6.3-8.3)
[2017-02-04 07:52] LABS: CALCIUM 7.7 mg/dl (8.6-10.4)
[2017-02-04] MEDS: (Novolin R) Insulin Human Regular 100 units/ml vial SC SCH ×4 (08:03→21:43)
[2017-02-04 08:35] LABS: BASOPHIL 1 % (0-2); NEUTROPHIL 78 % (50-75); TOTAL CELLS COUNTED 100
[2017-02-04] MEDS: Pantoprazole 40 mg EC Tab PO SCH (09:52)
[2017-02-04] MEDS: Sodium Chloride 0.45% 1,000 ML IV SCH ×3 (10:55→22:01)
--- NOTE | 2017-02-04 11:37 | CT ---
PROCEDURE: CT abdomen and pelvis dated 02/04/2017 HISTORY: Kidney stones. Rule out hydro. COMPARISON: Comparison made with prior study 04/27/2015 TECHNIQUE: Contiguous helical/transaxial images of the abdomen and pelvis. Oral contrast was administered. No IV contrast given. Coronal and Sagittal reformats generated. Radiation dose: Total exam DLP = 1331.04 9 mGy-cm. This CT exam was performed using one or more of the following dose reduction techniques: Automated exposure control, adjustment of the mA and/or kV according to patient size, and/or use of iterative reconstruction technique. FINDINGS: LOWER THORAX: Small right-sided effusion and mild right basilar atelectasis. The trace left effusion and minimal left basilar atelectasis. . Heart is enlarged Small hiatal hernia with wall thickening of the distal esophagus that could be due to protrusion gastric mucosa. Esophagitis not excluded. LIVER: The liver exhibits normal size measuring approximately 16.6 cm in CC dimension. No obvious hepatic mass collection or calcification. . No gross lesion or ductal dilatation. GALLBLADDER AND BILE DUCTS: Gallbladder is physiologically distended. Few tiny radiopaque calculi seen layering along the dependent portion of the gallbladder. PANCREAS: The pancreas is slightly atrophic and fatty replaced. No obvious pancreatic mass collection or significant ductal dilatation. SPLEEN: Spleen exhibits normal size and attenuation pattern without mass collection or calcification. ADRENALS: No definitive adrenal lesions. KIDNEYS AND URETERS: The kidneys exhibit relatively symmetric size. . There is a large on calculus within the mid posterior collecting system left kidney which measures approximately 2 cm in transverse dimension. There is an adjacent of posterior located punctate calcification is well. On the right side, there is a small approximately 5.75 mm elliptical shaped calcification calculus upper - midpole right kidney with a smaller approximately 3 mm calcification within the mid to lower pole. No definitive evidence of hydronephrosis so far as can be seen. There are grade vague infiltration changes in the perinephric fat bilaterally. BLADDER: The urinary bladder is also partially obscured along its inferior border due to streak and beam hardening artifact arising from left-sided total hip replacement. The urinary bladder appears incompletely distended which presumably in part accounts for thick-walled appearance. Muscular hypertrophy may contribute. The possibility of intrinsic/invasive wall lesion not excluded REPRODUCTIVE: Re- demonstrated is incompletely visualized elliptical shaped lipoma within the right superior scrotal sac which measures approximately 3.6 x 2.1 cm. Periods small hydrocele. Note that the prostate gland is partially obscured by crossing streak and beam hardening artifact arising from the left-sided total hip replacement. . APPENDIX: What is felt to represent a normal partially air-filled appendix, best seen on coronal image number history the BOWEL: Evaluation of the bowel is limited due to the lack of oral contrast material. The stomach is partially distended with food debris liquid and air. Visualized loops of small bowel exhibit normal contour and caliber. No evidence of acute mechanical small bowel obstruction. There are scattered colonic diverticula along the sigmoid and descending colon however no radiographic evidence of acute diverticulitis. No definitive mural wall thickening. PERITONEUM: Unremarkable. No fluid collection. No free air. Small fat containing umbilical hernia. LYMPH NODES: Unremarkable. No enlarged lymph nodes. VASCULATURE: Unremarkable. No aortic aneurysm. BONES: Mild multilevel degenerative spondylosis of the lower thoracic and lumbar spine. There is also a subtle dextroscoliosis centered in the L2-L3 level. Left-sided total hip replacement. OTHER FINDINGS: None. IMPRESSION: Bilateral renal calculi the largest in the posterior midpole collecting system pole collecting system measuring approximately No evidence of hydronephrosis. . Mild vague infiltration changes and patent within the perinephric fat nonspecific. No change small lipoma within the right aspect of the upper scrotum. . Small hydrocele Urinary bladder is incompletely visualized due to streak and beam hardening artifact arising from left total hip replacement however of wall thickening likely in part due to incomplete distention and muscular hypertrophy. Other intrinsic/invasive wall lesion not excluded. Go to the Diverticulosis without radiographic evidence of acute diverticulitis. Cholelithiasis. Small right-sided effusion and mild right basilar atelectasis. Trace left effusion and minimal left basilar atelectasis. Cardiomegaly. Air see above discussion for additional incidental findings
--- NOTE | 2017-02-04 12:59 | CP.PCM.PN ---
Subjective - Date & Time of Evaluation Date of Evaluation: 02/04/17 Time of Evaluation: 12:58 - Subjective Subjective: CHIEF COMPLAINTS TODAY : MORE ALERT ROS. HEENT : N. Resp : No cough, wheezing ,pleuritic CP ,or hemoptysis Cardio : No anginal CP, PND, orthopnea, palpitation GI : No abd.pain, n/v ,diarrhea or GI bleeding . MOLD CLAMPER : No headache, vertigo, focal deficit. Musculoskel : No joint swelling , Derm : No rash Psych : Normal affect. Ext : No swelling ,calf pain PE. Pt. is alert awake in no distress. V.S As noted in the chart Head ,ear nose,throat and eyes : Normal. Neck : Supple with normal carotids. Lungs: Clear air entry. Heart : S1 & S2 normal with S4. No murmur. Abd : Soft non tender with normal bowel sounds. Neuro : Moves all ext. with no localized deficit. Ext : No edema with intact pulses.Non tender calves Derm : No rashes or decubitus ulcer. LABS/RADIOLOGY: BLOOD CULTURE POS for E.COLI CT ABD RESULTS NOTED ASSESSMENT/PLAN : IV AB MAY NEED DAYNA Objective - Vital Signs/Intake and Output Vital Signs (last 24 hours): Temp Pulse Resp BP Pulse Ox 97.8 F 99 H 20 143/73 100 02/04/17 07:40 02/04/17 07:40 02/04/17 07:40 02/04/17 07:40 02/04/17 07:40 Intake and Output: 02/04/17 02/04/17 11:59 23:59 Intake Total 560 Balance 560 - Medications Medications: Current Medications Acetaminophen (Tylenol 325mg Tab) 650 mg PO Q6 PRN PRN Reason: Fever >100.4 F Last Admin: 02/02/17 06:15 Dose: 650 mg Albuterol/Ipratropium (Duoneb 3 Mg/0.5 Mg (3 Ml) Ud) 3 ml INH RQ4 [facility] Last Admin: 02/04/17 11:16 Dose: 3 ml Amlodipine Besylate (Norvasc) 5 mg PO DAILY [facility] Last Admin: 02/04/17 09:52 Dose: 5 mg Aspirin (Ecotrin) 81 mg PO DAILY [facility] Last Admin: 02/04/17 09:52 Dose: 81 mg Heparin Sodium (Porcine) (Heparin) 5,000 units SC BID [facility] Last Admin: 02/04/17 09:52 Dose: 5,000 units Sodium Chloride (Sodium Chloride 0.45%) 1,000 mls @ 80 mls/hr IV .[id number] [facility] Last Admin: 02/04/17 10:55 Dose: Not Given Imipenem/Cilastatin Sodium 500 (mg/ Sodium Chloride) 100 mls @ 100 mls/hr IVPB Q8H [facility] Last Admin: 02/04/17 12:08 Dose: 100 mls/hr Insulin Human Regular (Novolin R) 0 unit SC ACHS [facility] PRN Reason: Protocol Last Admin: 02/04/17 12:30 Dose: 4 unit Lisinopril (Zestril) 40 mg PO DAILY [facility] Last Admin: 02/04/17 09:52 Dose: 40 mg Metoprolol Tartrate (Lopressor) 50 mg PO Q12 [facility] Last Admin: 02/04/17 09:53 Dose: 50 mg Pantoprazole Sodium (Protonix Ec Tab) 40 mg PO DAILY [facility] Last Admin: 02/04/17 09:52 Dose: 40 mg Rosuvastatin Calcium (Crestor) 2.5 mg PO HS [facility] Last Admin: 02/03/17 21:58 Dose: 2.5 mg Terazosin HCl (Hytrin) 5 mg PO HS [facility] Last Admin: 02/03/17 21:57 Dose: 5 mg - Labs Labs: 02/04/17 07:16 02/04/17 07:16 PT 16.8 SECONDS (9.7-12.2) H 02/01/17 16:26 INR 1.5 02/01/17 16:26 APTT 28 SECONDS (21-34) 02/01/17 16:26
--- NOTE | 2017-02-04 13:41 | CP.PCM.PN ---
Subjective - Date & Time of Evaluation Date of Evaluation: 02/04/17 Time of Evaluation: 13:41 - Subjective Subjective: CHIEF COMPLAINTS TODAY : MORE ALERT AFEBRILE LESS SHORT OF BREATH. FEELS BETTER OVERALL. ROS. HEENT : N. Resp : No cough, wheezing ,pleuritic CP ,or hemoptysis Cardio : No anginal CP, PND, orthopnea, palpitation GI : No abd.pain, n/v ,diarrhea or GI bleeding . SCRUB NURSE : No headache, vertigo, focal deficit. Musculoskel : No joint swelling , Derm : No rash Psych : Normal affect. Ext : No swelling ,calf pain PE. Pt. is alert awake in no distress. V.S As noted in the chart Head ,ear nose,throat and eyes : Normal. Neck : Supple with normal carotids. Lungs: Clear air entry. Heart : S1 & S2 normal with S4. No murmur. Abd : Soft non tender with normal bowel sounds. Neuro : Moves all ext. with no localized deficit. Ext : No edema with intact pulses.Non tender calves Derm : No rashes or decubitus ulcer. labs CT ABD /pelvis; bilateral renal calculi, no hydro-, inflammatory changes perinephric fat., Thickening of the wall of the bladder?invasive process cannot be ruled out .Cholelithiasis bilateral pleural effusionsSmall. URINE CULTURE POSITIVE FOR ESCHERICHIA COLI. BLOOD CULTURE-+VE E.COLI S PRIMAXIN. WBC 5.6 H/H 9.5 /28.1 PLT 118K CREATININE 2.1/bun 34 LFTS AST V110 improving, ALT N , AP N ASSESSMENT 1. gram-negative septicemia. +ve E.COLI. 2. PYELONEPHRITIS /UTI + E.COLI. 3. BILATERAL NEPHROLITHIASIS. 4. CYSTITIS-BLADDER WALL THICKENING? INVASIVE PROCESS WALL CANNOT BE RULED OUT. 5. CHOLELITHIASIS (ASYMPTOMATIC ). 6. RENAL INSUFFICIENCY ON CHRONIC RENAL INSUFFICIENCY. 7. DIABETES MELLITUS. 8. HYPERTENSION .9. MORBID OBESITY ?SLEEP APNEA SYNDROME. /PLAN : CONTINUE iv pRIMAXIN 500 MG EVERY [address] MUELLER FOR BILATERAL NEPHROLITHIASIS/CYSTITIS/INVASIVE BLADDER WALL PROCESS. PATIENT WILL NEED A picc LINE 4 MAY NEED iv ANTIBIOTICS X 3 WEEKS MAY NEED DAYNA PATIENT UNABLE TO TAKE CARE OF HIMSELF. MONITOR RENAL FUNCTIONS CLOSELY. REPEAT BLOOD CULTURES 2 SETS IN A.M. CASE DISCUSSED WITH STAFF/ PMD. PATIENT ALSO WILL NEED gu WORKUP ? CYSTOSCOPY/? BLADDER WALL BIOPSY/? LITHOTRIPSY Objective - Vital Signs/Intake and Output Vital Signs (last 24 hours): Temp Pulse Resp BP Pulse Ox 97.8 F 99 H 20 143/73 100 02/04/17 07:40 02/04/17 07:40 02/04/17 07:40 02/04/17 07:40 02/04/17 07:40 Intake and Output: 02/04/17 02/04/17 06:59 18:59 Intake Total 1520 Output Total 480 Balance 1040 - Medications Medications: Current Medications Acetaminophen (Tylenol 325mg Tab) 650 mg PO Q6 PRN PRN Reason: Fever >100.4 F Last Admin: 02/02/17 06:15 Dose: 650 mg Albuterol/Ipratropium (Duoneb 3 Mg/0.5 Mg (3 Ml) Ud) 3 ml INH RQ4 [facility] Last Admin: 02/04/17 11:16 Dose: 3 ml Amlodipine Besylate (Norvasc) 5 mg PO DAILY [facility] Last Admin: 02/04/17 09:52 Dose: 5 mg Aspirin (Ecotrin) 81 mg PO DAILY [facility] Last Admin: 02/04/17 09:52 Dose: 81 mg Heparin Sodium (Porcine) (Heparin) 5,000 units SC BID [facility] Last Admin: 02/04/17 09:52 Dose: 5,000 units Sodium Chloride (Sodium Chloride 0.45%) 1,000 mls @ 80 mls/hr IV .[id number] [facility] Last Admin: 02/04/17 10:55 Dose: Not Given Imipenem/Cilastatin Sodium 500 (mg/ Sodium Chloride) 100 mls @ 100 mls/hr IVPB Q8H [facility] Last Admin: 02/04/17 12:08 Dose: 100 mls/hr Insulin Human Regular (Novolin R) 0 unit SC ACHS [facility] PRN Reason: Protocol Last Admin: 02/04/17 12:30 Dose: 4 unit Lisinopril (Zestril) 40 mg PO DAILY [facility] Last Admin: 02/04/17 09:52 Dose: 40 mg Metoprolol Tartrate (Lopressor) 50 mg PO Q12 [facility] Last Admin: 02/04/17 09:53 Dose: 50 mg Pantoprazole Sodium (Protonix Ec Tab) 40 mg PO DAILY [facility] Last Admin: 02/04/17 09:52 Dose: 40 mg Rosuvastatin Calcium (Crestor) 2.5 mg PO HS [facility] Last Admin: 02/03/17 21:58 Dose: 2.5 mg Terazosin HCl (Hytrin) 5 mg PO HS [facility] Last Admin: 02/03/17 21:57 Dose: 5 mg - Labs Labs: 02/04/17 07:16 02/04/17 07:16 PT 16.8 SECONDS (9.7-12.2) H 02/01/17 16:26 INR 1.5 02/01/17 16:26 APTT 28 SECONDS (21-34) 02/01/17 16:26 Assessment and Plan (1) Sepsis Status: Acute (2) UTI (urinary tract infection) Status: Acute (3) HTN (hypertension) Status: Acute (4) Diabetes mellitus Status: Acute (5) Renal insufficiency Status: Acute
[2017-02-04] MEDS: Rosuvastatin Calcium 2.5 mg Tab PO SCH (21:29)
[2017-02-05] MEDS: Albuterol-Ipratrop 3 mg / 0.5 (3 ml) UD INH SCH ×6 (00:20→20:19)
[2017-02-05 06:59] LABS: POTASSIUM 3.9 mmol/L (3.6-5.2)
[2017-02-05 07:01] LABS: ALB/GLOB RATIO 0.9 (1.0-2.1); TOTAL PROTEIN 6.2 g/dL (6.3-8.3)
[2017-02-05 07:02] LABS: CALCIUM 7.6 mg/dl (8.6-10.4)
[2017-02-05 07:12] LABS: BASO % 0.5 % (0.0-2.0); EOS # 0.2 K/uL (0.0-0.7); EOS % 2.9 % (0.0-4.0); HEMATOCRIT 28.6 % (35.0-51.0); LYMPH # 0.4 K/uL (1.0-4.3); LYMPH % 6.4 % (20.0-40.0); MEAN CELL VOLUME 90.6 fL (80.0-94.0); MEAN CORPUSCULAR HEMOGLOBIN 30.7 pg (27.0-31.0); MEAN CORPUSCULAR HGB CONC 33.9 g/dL (33.0-37.0); MEAN PLATELET VOLUME 8.2 fL (7.2-11.7); MONO # 0.6 K/uL (0.0-0.8); MONO % 9.7 % (0.0-10.0); NRBC % 0.1 % (0.0-2.0); PLATELET COUNT 135 K/uL (130-400); RED CELL DISTRIBUTION WIDTH 14.4 % (11.5-14.5); WHITE BLOOD COUNT 6.1 K/uL (4.8-10.8)
[2017-02-05] MEDS: (Novolin R) Insulin Human Regular 100 units/ml vial SC SCH ×4 (08:05→21:28)
[2017-02-05 08:39] LABS: BASOPHIL 1 % (0-2); EOSINOPHIL 4 % (0-4); MYELOCYTE 1 % (0-0); NEUTROPHIL 71 % (50-75); TOTAL CELLS COUNTED 100
--- NOTE | 2017-02-05 09:54 | CP.PCM.CON ---
Past Patient History - Past Medical History & Family History Past Medical History?: Yes - Past Social History Smoking Status: Never Smoked - CARDIAC Hx Hypercholesterolemia: Yes Hx Hypertension: Yes - PULMONARY Hx Respiratory Disorders: No - NEUROLOGICAL Hx Neurological Disorder: No - HEENT Hx HEENT Problems: Yes Hx Cataracts: Yes - RENAL Hx Chronic Kidney Disease: No - ENDOCRINE/METABOLIC Hx Endocrine Disorders: Yes Hx Diabetes Mellitus Type 2: Yes - HEMATOLOGICAL/ONCOLOGICAL Hx Blood Disorders: No - INTEGUMENTARY Hx Dermatological Problems: No - MUSCULOSKELETAL/RHEUMATOLOGICAL Hx Fractures: Yes - GASTROINTESTINAL Hx Gastrointestinal Disorders: No - GENITOURINARY/GYNECOLOGICAL Hx Genitourinary Disorders: Yes Hx Incontinence: Yes - PSYCHIATRIC Hx Substance Use: No - SURGICAL HISTORY Hx Breast Biopsy: Yes Hx Joint Replacement: Yes Hx Musculoskeletal Surgery: Yes Other/Comment: Hip and bilateral knee replacement - ANESTHESIA Hx Anesthesia: Yes Hx Anesthesia Reactions: No Hx Malignant Hyperthermia: No Meds Allergies/Adverse Reactions: Allergies Allergy/AdvReac Type Severity Reaction Status Date / Time No Known Allergies Allergy Verified 02/01/17 15:47 - Medications Medications: Current Medications Acetaminophen (Tylenol 325mg Tab) 650 mg PO Q6 PRN PRN Reason: Fever >100.4 F Last Admin: 02/02/17 06:15 Dose: 650 mg Albuterol/Ipratropium (Duoneb 3 Mg/0.5 Mg (3 Ml) Ud) 3 ml INH RQ4 [facility] Last Admin: 02/05/17 08:29 Dose: 3 ml Amlodipine Besylate (Norvasc) 5 mg PO DAILY [facility] Last Admin: 02/04/17 09:52 Dose: 5 mg Aspirin (Ecotrin) 81 mg PO DAILY [facility] Last Admin: 02/04/17 09:52 Dose: 81 mg Heparin Sodium (Porcine) (Heparin) 5,000 units SC BID [facility] Last Admin: 02/04/17 18:07 Dose: 5,000 units Imipenem/Cilastatin Sodium 500 (mg/ Sodium Chloride) 100 mls @ 100 mls/hr IVPB Q8H [facility] Last Admin: 02/05/17 03:49 Dose: 100 mls/hr Sodium Chloride (Sodium Chloride 0.45%) 1,000 mls @ 80 mls/hr IV .[id number] [facility] Stop: 02/07/17 22:00 Last Admin: 02/04/17 22:01 Dose: 80 mls/hr Insulin Human Regular (Novolin R) 0 unit SC ACHS [facility] PRN Reason: Protocol Last Admin: 02/04/17 21:43 Dose: 2 unit Lisinopril (Zestril) 40 mg PO DAILY [facility] Last Admin: 02/04/17 09:52 Dose: 40 mg Metoprolol Tartrate (Lopressor) 50 mg PO Q12 [facility] Last Admin: 02/04/17 21:29 Dose: 50 mg Pantoprazole Sodium (Protonix Ec Tab) 40 mg PO DAILY [facility] Last Admin: 02/04/17 09:52 Dose: 40 mg Rosuvastatin Calcium (Crestor) 2.5 mg PO HS [facility] Last Admin: 02/04/17 21:29 Dose: 2.5 mg Terazosin HCl (Hytrin) 5 mg PO HS [facility] Last Admin: 02/04/17 21:29 Dose: 5 mg Results - Vital Signs Recent Vital Signs: Last Vital Signs Temp 97.9 F 02/05/17 07:30 Pulse 83 02/05/17 07:30 Resp 18 02/05/17 07:30 BP 159/87 H 02/05/17 07:30 Pulse Ox 98 02/05/17 07:30 - Labs Result Diagrams: 02/05/17 06:37 02/05/17 06:37 Labs: Laboratory Results - last 24 hr 02/04/17 02/04/17 02/04/17 11:22 16:46 21:07 WBC RBC Hgb Hct MCV MCH MCHC RDW Plt Count MPV Neut % (Auto) Lymph % (Auto) Bond % (Auto) Eos % (Auto) Baso % (Auto) Neut # Lymph # Bond # Eos # Baso # Neutrophils % (Manual) Band Neutrophils % Lymphocytes % (Manual) Monocytes % (Manual) Eosinophils % (Manual) Basophils % (Manual) Myelocytes % Platelet Estimate Poikilocytosis (manual Ovalocytes Sodium Potassium Chloride Carbon Dioxide Anion Gap BUN Creatinine Est GFR ( Amer) Est GFR (Non-Af Amer) POC Glucose (mg/dL) 262 H 260 H 303 H Random Glucose Calcium Total Bilirubin AST ALT Alkaline Phosphatase Total Protein Albumin Globulin Albumin/Globulin Ratio 02/05/17 02/05/17 02/05/17 01:59 06:18 06:37 WBC 6.1 RBC 3.16 L Hgb 9.7 L Hct 28.6 L MCV 90.6 MCH 30.7 MCHC 33.9 RDW 14.4 Plt Count 135 MPV 8.2 Neut % (Auto) 80.5 H Lymph % (Auto) 6.4 L Bond % (Auto) 9.7 Eos % (Auto) 2.9 Baso % (Auto) 0.5 Neut # 4.9 Lymph # 0.4 L Bond # 0.6 Eos # 0.2 Baso # 0.0 Neutrophils % (Manual) 71 Band Neutrophils % 4 H Lymphocytes % (Manual) 10 L Monocytes % (Manual) 9 Eosinophils % (Manual) 4 Basophils % (Manual) 1 Myelocytes % 1 H Platelet Estimate Normal Poikilocytosis (manual Slight Ovalocytes Slight Sodium Potassium Chloride Carbon Dioxide Anion Gap BUN Creatinine Est GFR ( Amer) Est GFR (Non-Af Amer) POC Glucose (mg/dL) 251 H 207 H Random Glucose Calcium Total Bilirubin AST ALT Alkaline Phosphatase Total Protein Albumin Globulin Albumin/Globulin Ratio 02/05/17 06:37 WBC RBC Hgb Hct MCV MCH MCHC RDW Plt Count MPV Neut % (Auto) Lymph % (Auto) Bond % (Auto) Eos % (Auto) Baso % (Auto) Neut # Lymph # Bond # Eos # Baso # Neutrophils % (Manual) Band Neutrophils % Lymphocytes % (Manual) Monocytes % (Manual) Eosinophils % (Manual) Basophils % (Manual) Myelocytes % Platelet Estimate Poikilocytosis (manual Ovalocytes Sodium 136 Potassium 3.9 Chloride 105 Carbon Dioxide 22 Anion Gap 13 BUN 28 H Creatinine 1.6 H Est GFR ( Amer) 50 Est GFR (Non-Af Amer) 42 POC Glucose (mg/dL) Random Glucose 208 H Calcium 7.6 L Total Bilirubin 1.0 AST 142 H D ALT 84 H D Alkaline Phosphatase 64 Total Protein 6.2 L Albumin 2.9 L Globulin 3.3 Albumin/Globulin Ratio 0.9 L Assessment & Plan - Assessment and Plan (Free Text) Assessment: IMP: UTI BPH UROLITHIASIS VOIDING DYSFUNCTION Plan: SEE ORDERS PLEASE SEE FULL NOTE - TO BE DICTATED - Date & Time Date: 02/05/17 Time: 09:53
[2017-02-05] MEDS: Sodium Chloride 0.45% 1,000 ML IV SCH (10:34)
[2017-02-05] MEDS: Pantoprazole 40 mg EC Tab PO SCH (10:36)
--- NOTE | 2017-02-05 13:04 | RAD ---
HISTORY: urolithiasis COMPARISON: 04/27/2015 CT abdomen and pelvis without PO or oral contrast FINDINGS: BOWEL: Moderate stool retention 2 cm homogeneous calcification projects over the left mid to lower renal pole -unchanged consistent with a large left renal calculus here -noted on the prior 2015 global compensation director images BONES: [place] lumbar spondylosis. Inferior lumbosacral facet arthrosis. No fracture or lytic lesion. Tip prosthesis. Degenerative changes in the right hip. OTHER FINDINGS: Bilateral hemipelvic phleboliths -similar-appearing IMPRESSION: 2 cm left renal calculus -similar in appearance with CT global compensation director image 04/27/2015
--- NOTE | 2017-02-05 13:31 | CP.PCM.PN ---
Subjective - Date & Time of Evaluation Date of Evaluation: 02/05/17 Time of Evaluation: 13:29 - Subjective Subjective: CHIEF COMPLAINTS TODAY : NO SP COMPLINTS UROLOGY ON BOARD PICC LINE ROS. HEENT : N. Resp : No cough, wheezing ,pleuritic CP ,or hemoptysis Cardio : No anginal CP, PND, orthopnea, palpitation GI : No abd.pain, n/v ,diarrhea or GI bleeding . 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 Musculoskel : No joint swelling , Derm : No rash Psych : Normal affect. Ext : No swelling ,calf pain PE. Pt. is alert awake in no distress. V.S As noted in the chart Head ,ear nose,throat and eyes : Normal. Neck : Supple with normal carotids. Lungs: Clear air entry. Heart : S1 & S2 normal with S4. No murmur. Abd : Soft non tender with normal bowel sounds. Neuro : Moves all ext. with no localized deficit. Ext : No edema with intact pulses.Non tender calves Derm : No rashes or decubitus ulcer. LABS/RADIOLOGY: BLOOD CULTURE POS for E.COLI CT ABD RESULTS NOTED ASSESSMENT/PLAN : D/W PT THE DIFFERENT APPROACHES OF TREATMENT . PT HAS AGREED TO GO [facility] FOR IV AB Objective - Vital Signs/Intake and Output Vital Signs (last 24 hours): Temp Pulse Resp BP Pulse Ox 97.9 F 83 18 159/87 H 98 02/05/17 07:30 02/05/17 07:30 02/05/17 07:30 02/05/17 07:30 02/05/17 07:30 Intake and Output: 02/05/17 02/05/17 11:59 23:59 Output Total 350 Balance -350 - Medications Medications: Current Medications Acetaminophen (Tylenol 325mg Tab) 650 mg PO Q6 PRN PRN Reason: Fever >100.4 F Last Admin: 02/02/17 06:15 Dose: 650 mg Albuterol/Ipratropium (Duoneb 3 Mg/0.5 Mg (3 Ml) Ud) 3 ml INH RQ4 [facility] Last Admin: 02/05/17 08:29 Dose: 3 ml Amlodipine Besylate (Norvasc) 5 mg PO DAILY [facility] Last Admin: 02/05/17 10:36 Dose: 5 mg Aspirin (Ecotrin) 81 mg PO DAILY [facility] Last Admin: 02/05/17 10:36 Dose: 81 mg Imipenem/Cilastatin Sodium 500 (mg/ Sodium Chloride) 100 mls @ 100 mls/hr IVPB Q8H [facility] Last Admin: 02/05/17 11:05 Dose: 100 mls/hr Sodium Chloride (Sodium Chloride 0.45%) 1,000 mls @ 80 mls/hr IV .[id number] [facility] Stop: 02/07/17 22:00 Last Admin: 02/05/17 10:34 Dose: 80 mls/hr Insulin Human Regular (Novolin R) 0 unit SC ACHS [facility] PRN Reason: Protocol Last Admin: 02/05/17 12:03 Dose: 3 unit Lisinopril (Zestril) 40 mg PO DAILY [facility] Last Admin: 02/05/17 10:36 Dose: 40 mg Metoprolol Tartrate (Lopressor) 50 mg PO Q12 [facility] Last Admin: 02/05/17 10:38 Dose: 50 mg Pantoprazole Sodium (Protonix Ec Tab) 40 mg PO DAILY [facility] Last Admin: 02/05/17 10:36 Dose: 40 mg Rosuvastatin Calcium (Crestor) 2.5 mg PO HS [facility] Last Admin: 02/04/17 21:29 Dose: 2.5 mg Terazosin HCl (Hytrin) 5 mg PO HS [facility] Last Admin: 02/04/17 21:29 Dose: 5 mg - Labs Labs: 02/05/17 06:37 02/05/17 06:37 PT 16.8 SECONDS (9.7-12.2) H 02/01/17 16:26 INR 1.5 02/01/17 16:26 APTT 28 SECONDS (21-34) 02/01/17 16:26
--- NOTE | 2017-02-05 14:02 | CP.PCM.PN ---
Subjective - Date & Time of Evaluation Date of Evaluation: 02/05/17 Time of Evaluation: 14:02 - Subjective Subjective: CHIEF COMPLAINTS TODAY : AFEBRILE FEELS BETTER OVERALL. pt for PICC LINE TODAY. SEEN BY ANA CRISTINA-DR MUELLER. ROS. HEENT : N. Resp : No cough, wheezing ,pleuritic CP ,or hemoptysis Cardio : No anginal CP, PND, orthopnea, palpitation GI : No abd.pain, n/v ,diarrhea or GI bleeding . 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 Musculoskel : No joint swelling , Derm : No rash Psych : Normal affect. Ext : No swelling ,calf pain PE. Pt. is alert awake in no distress. V.S As noted in the chart Head ,ear nose,throat and eyes : Normal. Neck : Supple with normal carotids. Lungs: Clear air entry. Heart : S1 & S2 normal with S4. No murmur. Abd : Soft non tender with normal bowel sounds. Neuro : Moves all ext. with no localized deficit. Ext : No edema with intact pulses.Non tender calves Derm : No rashes or decubitus ulcer. labs CT ABD /pelvis; bilateral renal calculi, no hydro-, inflammatory changes perinephric fat., Thickening of the wall of the bladder?invasive process cannot be ruled out .Cholelithiasis bilateral pleural effusionsSmall. URINE CULTURE POSITIVE FOR ESCHERICHIA COLI. BLOOD CULTURE-+VE E.COLI S PRIMAXIN. ASSESSMENT 1. gram-negative septicemia. +ve E.COLI. 2. PYELONEPHRITIS /UTI + E.COLI. 3. BILATERAL NEPHROLITHIASIS. 4. CYSTITIS-BLADDER WALL THICKENING? INVASIVE PROCESS WALL CANNOT BE RULED OUT. 5. CHOLELITHIASIS (ASYMPTOMATIC ). 6. RENAL INSUFFICIENCY ON CHRONIC RENAL INSUFFICIENCY. 7. DIABETES MELLITUS. 8. HYPERTENSION .9. MORBID OBESITY ?SLEEP APNEA SYNDROME. /PLAN : CONTINUE iv pRIMAXIN 500 MG EVERY 8 HOURLY. PATIENT WILL NEED A picc LINE 4 MAY NEED iv ANTIBIOTICS X 3 WEEKS MAY NEED DAYNA PATIENT UNABLE TO TAKE CARE OF HIMSELF. MONITOR RENAL FUNCTIONS CLOSELY. REPEAT BLOOD CULTURE X2 -DONE CASE DISCUSSED WITH STAFF/ PMD. PATIENT ALSO WILL NEED gu WORKUP ? CYSTOSCOPY/? BLADDER WALL BIOPSY/? LITHOTRIPSY Objective - Vital Signs/Intake and Output Vital Signs (last 24 hours): Temp Pulse Resp BP Pulse Ox 97.9 F 83 18 159/87 H 98 02/05/17 07:30 02/05/17 07:30 02/05/17 07:30 02/05/17 07:30 02/05/17 07:30 Intake and Output: 02/05/17 02/05/17 06:59 18:59 Output Total 350 Balance -350 - Medications Medications: Current Medications Acetaminophen (Tylenol 325mg Tab) 650 mg PO Q6 PRN PRN Reason: Fever >100.4 F Last Admin: 02/02/17 06:15 Dose: 650 mg Albuterol/Ipratropium (Duoneb 3 Mg/0.5 Mg (3 Ml) Ud) 3 ml INH RQ4 [facility] Last Admin: 02/05/17 14:00 Dose: 3 ml Amlodipine Besylate (Norvasc) 5 mg PO DAILY [facility] Last Admin: 02/05/17 10:36 Dose: 5 mg Aspirin (Ecotrin) 81 mg PO DAILY [facility] [place] Last Admin: 02/05/17 10:36 Dose: 81 mg Imipenem/Cilastatin Sodium 500 (mg/ Sodium Chloride) 100 mls @ 100 mls/hr IVPB Q8H [facility] [place] Last Admin: 02/05/17 11:05 Dose: 100 mls/hr Sodium Chloride (Sodium Chloride 0.45%) 1,000 mls @ 80 mls/hr IV .[id number] [facility] Stop: 02/07/17 22:00 Last Admin: 02/05/17 10:34 Dose: 80 mls/hr Insulin Human Regular (Novolin R) 0 unit SC ACHS [facility] PRN Reason: Protocol Last Admin: 02/05/17 12:03 Dose: 3 unit Lisinopril (Zestril) 40 mg PO DAILY [facility] [place] Last Admin: 02/05/17 10:36 Dose: 40 mg Metoprolol Tartrate (Lopressor) 50 mg PO Q12 [facility] [place] Last Admin: 02/05/17 10:38 Dose: 50 mg Pantoprazole Sodium (Protonix Ec Tab) 40 mg PO DAILY [facility] [place] Last Admin: 02/05/17 10:36 Dose: 40 mg Rosuvastatin Calcium (Crestor) 2.5 mg PO HS [facility] [place] Last Admin: 02/04/17 21:29 Dose: 2.5 mg Terazosin HCl (Hytrin) 5 mg PO HS [facility] [place] Last Admin: 02/04/17 21:29 Dose: 5 mg - Labs Labs: 02/05/17 06:37 02/05/17 06:37 PT 16.8 SECONDS (9.7-12.2) H 02/01/17 16:26 INR 1.5 02/01/17 16:26 APTT 28 SECONDS (21-34) 02/01/17 16:26 Assessment and Plan (1) Sepsis Status: Acute (2) UTI (urinary tract infection) Status: Acute (3) HTN (hypertension) Status: Acute (4) Diabetes mellitus Status: Acute (5) Renal insufficiency Status: Acute
[2017-02-05] MEDS ORDERED: Lidocaine 1% Inj (20ml) ONE (14:15)
--- NOTE | 2017-02-05 14:48 | PCM.SURG1 ---
Surgeon's Initial Post Op Note - Surgeon's Notes Surgeon: Aldair Whitehead MD Credit Front Office Developer: NONE Type of Anesthesia: Local Pre-Operative Diagnosis: Poor venous access Operative Findings: US showed a patent right basilic vein. Post-Operative Diagnosis: Poor venous access Operation Performed: Single lumen picc placement via right basilic vein, 39 cm. Tip in SVC. Specimen/Specimens Removed: NOne Estimated Blood Loss: EBL {In ML}: 2 Blood Products Given: N/A Drains Used: No Drains Post-Op Condition: Fair Date of Surgery/Procedure: 02/05/17 Time of Surgery/Procedure: 14:45
[2017-02-05 17:30] VITALS: RESP 20
[2017-02-05 19:00] LABS: RBC URINE 22 /hpf (0-3); URINE BILIRUBIN NEGATIVE (NEGATIVE); URINE BLOOD 2+ (NEGATIVE); URINE COLOR Yellow (YELLOW); URINE GLUCOSE (UA) 1+ mg/dL (Normal); URINE KETONE TRACE mg/dL (NEGATIVE); URINE LEUKOCYTE ESTERASE TRACE Leu/uL (Negative); URINE PROTEIN NEGATIVE (NEGATIVE); URINE UROBILINOGEN NORMAL mg/dL (0.2-1.0); WBC URINE 4 /hpf (0-5)
[2017-02-05] MEDS: Rosuvastatin Calcium 2.5 mg Tab PO SCH (21:16)
[2017-02-06] MEDS: Albuterol-Ipratrop 3 mg / 0.5 (3 ml) UD INH SCH ×4 (00:50→11:43)
[2017-02-06] MEDS: Sodium Chloride 0.45% 1,000 ML IV SCH ×3 (00:56→13:39)
[2017-02-06 07:34] LABS: BASO # 0.1 K/uL (0.0-0.2); BASO % 0.9 % (0.0-2.0); EOS # 0.2 K/uL (0.0-0.7); EOS % 3.1 % (0.0-4.0); HEMATOCRIT 28.4 % (35.0-51.0); LYMPH # 0.5 K/uL (1.0-4.3); LYMPH % 8.3 % (20.0-40.0); MEAN CELL VOLUME 90.5 fL (80.0-94.0); MEAN CORPUSCULAR HEMOGLOBIN 30.9 pg (27.0-31.0); MEAN CORPUSCULAR HGB CONC 34.2 g/dL (33.0-37.0); MEAN PLATELET VOLUME 8.6 fL (7.2-11.7); MONO # 0.5 K/uL (0.0-0.8); MONO % 8.9 % (0.0-10.0); PLATELET COUNT 150 K/uL (130-400); RED CELL DISTRIBUTION WIDTH 14.4 % (11.5-14.5)
[2017-02-06 07:54] LABS: POTASSIUM 3.9 mmol/L (3.6-5.2)
[2017-02-06 07:56] LABS: ALB/GLOB RATIO 0.9 (1.0-2.1); BILIRUBIN,TOTAL 0.9 mg/dL (0.2-1.3); TOTAL PROTEIN 6.3 g/dL (6.3-8.3)
[2017-02-06 07:57] LABS: CALCIUM 7.9 mg/dl (8.6-10.4)
[2017-02-06] MEDS: (Novolin R) Insulin Human Regular 100 units/ml vial SC SCH ×2 (08:15→12:21)
[2017-02-06 08:29] VITALS: PULSE 84; TEMP 98.1
[2017-02-06 09:03] LABS: BASOPHIL 2 % (0-2); EOSINOPHIL 3 % (0-4); NEUTROPHIL 74 % (50-75); TOTAL CELLS COUNTED 100
[2017-02-06] MEDS: Pantoprazole 40 mg EC Tab PO SCH (09:47)
--- NOTE | 2017-02-06 11:19 | CP.PCM.PN ---
Subjective - Date & Time of Evaluation Date of Evaluation: 02/06/17 Time of Evaluation: 11:19 - Subjective Subjective: AFEBRILE. NO NEW COMPLAINTS. REPEAT BLOOD CULTURES 02/05/17 X2SETS -VE X 24HRS. RENAL FUNCTION IMPROVING, LFTS IMPROVING. CONTINUE IV ABX IV PRIMAXIN 500MG IV Q 8HRLY X TOTAL OF 3WKS.(02/02/17 TILL February ) Objective - Vital Signs/Intake and Output Vital Signs (last 24 hours): Temp Pulse Resp BP Pulse Ox 98.1 F 84 20 177/75 H 99 02/06/17 08:28 02/06/17 08:28 02/06/17 08:28 02/06/17 08:28 02/06/17 08:28 Intake and Output: 02/06/17 02/06/17 06:59 18:59 Intake Total 1480 Output Total 850 Balance 630 - Medications Medications: Current Medications Acetaminophen (Tylenol 325mg Tab) 650 mg PO Q6 PRN PRN Reason: Fever >100.4 F Last Admin: 02/02/17 06:15 Dose: 650 mg Albuterol/Ipratropium (Duoneb 3 Mg/0.5 Mg (3 Ml) Ud) 3 ml INH RQ4 [facility] Last Admin: 02/06/17 08:36 Dose: 3 ml Amlodipine Besylate (Norvasc) 5 mg PO DAILY [facility] Last Admin: 02/06/17 09:47 Dose: 5 mg Aspirin (Ecotrin) 81 mg PO DAILY [facility] Last Admin: 02/06/17 09:47 Dose: 81 mg Imipenem/Cilastatin Sodium 500 (mg/ Sodium Chloride) 100 mls @ 100 mls/hr IVPB Q8H [facility] Last Admin: 02/06/17 03:18 Dose: 100 mls/hr Sodium Chloride (Sodium Chloride 0.45%) 1,000 mls @ 80 mls/hr IV .[id number] [facility] Stop: 02/07/17 22:00 Last Admin: 02/06/17 03:20 Dose: 80 mls/hr Insulin Human Regular (Novolin R) 0 unit SC ACHS [facility] PRN Reason: Protocol Last Admin: 02/06/17 08:15 Dose: 3 unit Lisinopril (Zestril) 40 mg PO DAILY [facility] Last Admin: 02/06/17 09:47 Dose: 40 mg Metoprolol Tartrate (Lopressor) 50 mg PO Q12 [facility] Last Admin: 02/06/17 09:47 Dose: 50 mg Pantoprazole Sodium (Protonix Ec Tab) 40 mg PO DAILY [facility] Last Admin: 02/06/17 09:47 Dose: 40 mg Rosuvastatin Calcium (Crestor) 2.5 mg PO [facility] Last Admin: 02/05/17 21:16 Dose: 2.5 mg Terazosin HCl (Hytrin) 5 mg PO [facility] Last Admin: 02/05/17 21:28 Dose: 5 mg - Labs Labs: 02/06/17 07:18 02/06/17 07:18 PT 16.8 SECONDS (9.7-12.2) H 02/01/17 16:26 INR 1.5 02/01/17 16:26 APTT 28 SECONDS (21-34) 02/01/17 16:26 - Constitutional Appears: No Acute Distress - Head Exam Head Exam: NORMAL INSPECTION - Eye Exam Eye Exam: EOMI, PERRL. absent: Scleral icterus - ENT Exam ENT Exam: Normal Oropharynx - Neck Exam Neck Exam: Normal Inspection - Respiratory Exam Respiratory Exam: Clear to Ausculation Bilateral - Cardiovascular Exam Cardiovascular Exam: REGULAR RHYTHM, +S1, +S2 - GI/Abdominal Exam GI & Abdominal Exam: Soft, Normal Bowel Sounds. absent: Tenderness - Extremities Exam Extremities Exam: Normal Capillary Refill, Pedal Edema. absent: Calf Tenderness - Neurological Exam Neurological Exam: Alert, Awake, CN II-XII Intact, Normal Gait, Oriented x3, Reflexes Normal - Psychiatric Exam Psychiatric exam: Normal Mood - Skin Skin Exam: Normal Color, Warm Assessment and Plan (1) Sepsis Status: Acute (2) UTI (urinary tract infection) Status: Acute (3) HTN (hypertension) Status: Acute (4) Diabetes mellitus Status: Acute (5) Renal insufficiency Status: Acute - Assessment and Plan (Free Text) Assessment: ASSESSMENT 1. gram-negative septicemia. +ve E.COLI. 2. PYELONEPHRITIS /UTI + E.COLI. 3. BILATERAL NEPHROLITHIASIS. 4. CYSTITIS-BLADDER WALL THICKENING? INVASIVE PROCESS WALL CANNOT BE RULED OUT. 5. CHOLELITHIASIS (ASYMPTOMATIC ). 6. RENAL INSUFFICIENCY ON CHRONIC RENAL INSUFFICIENCY. 7. DIABETES MELLITUS. 8. HYPERTENSION .9. MORBID OBESITY ?SLEEP APNEA SYNDROME. /PLAN : CONTINUE iv pRIMAXIN 500 MG EVERY 8 HOURLY.(02/02/17) PATIENT WILL NEED IV ANTIBIOTICS X 3 WEEKS FOR E.COLI BACTEREMIA/UROSEPSIS FOR DAYNA PATIENT UNABLE TO TAKE CARE OF HIMSELF. MONITOR RENAL FUNCTIONS /LFTS CLOSELY. F/U REPEAT BLOOD CULTURE X 72HRS CASE DISCUSSED WITH STAFF/ PMD. PATIENT ALSO WILL NEED WORKUP ? CYSTOSCOPY/? BLADDER WALL BIOPSY/? LITHOTRIPSY
--- NOTE | 2017-02-06 11:35 | PCM.URO ---
Urology Progress Note - General General: No Complaints, Tolerating Diet - Subjective Abdominal Pain: No Flank Pain: No Nausea: No Vomiting: No Voiding Well: Yes Dysuria: No Hematuria: No Stone Passed: No Dsypnea: No Chest Pain: No Fever & Chills: No - Objective Lab Studies: Reviewed Lab Results Last 24 Hours: Laboratory Results - last 24 hr 02/05/17 02/05/17 02/05/17 11:45 16:11 18:21 WBC RBC Hgb Hct MCV MCH MCHC RDW Plt Count MPV Neut % (Auto) Lymph % (Auto) [place] % (Auto) Eos % (Auto) Baso % (Auto) Neut # Lymph # [place] # Eos # Baso # Neutrophils % (Manual) Band Neutrophils % Lymphocytes % (Manual) Monocytes % (Manual) Eosinophils % (Manual) Basophils % (Manual) Platelet Estimate Hypochromasia (manual) Poikilocytosis (manual Anisocytosis (manual) Sodium Potassium Chloride Carbon Dioxide Anion Gap BUN Creatinine Est GFR ( Amer) Est GFR (Non-Af Amer) POC Glucose (mg/dL) 253 H 266 H Random Glucose Calcium Total Bilirubin AST ALT Alkaline Phosphatase Total Protein Albumin Globulin Albumin/Globulin Ratio Urine Color Yellow Urine Clarity Clear Urine pH 6.0 Ur Specific [place] 1.012 Urine Protein Negative Urine Glucose (UA) 1+ H Urine Ketones Trace Urine Blood 2+ H Urine Nitrate Negative Urine Bilirubin Negative Urine Urobilinogen Normal Ur Leukocyte Esterase Trace Urine WBC (Auto) 4 Urine RBC (Auto) 22 H Ur Squamous Epith Cells < 1 02/05/17 02/06/17 02/06/17 21:22 07:08 07:18 WBC 6.0 RBC 3.13 L Hgb 9.7 L Hct 28.4 L MCV 90.5 MCH 30.9 MCHC 34.2 RDW 14.4 Plt Count 150 MPV 8.6 Neut % (Auto) 78.8 H Lymph % (Auto) 8.3 L [place] % (Auto) 8.9 Eos % (Auto) 3.1 Baso % (Auto) 0.9 Neut # 4.8 Lymph # 0.5 L [place] # 0.5 Eos # 0.2 Baso # 0.1 Neutrophils % (Manual) 74 Band Neutrophils % 1 Lymphocytes % (Manual) 14 L Monocytes % (Manual) 6 Eosinophils % (Manual) 3 Basophils % (Manual) 2 Platelet Estimate Normal Hypochromasia (manual) Slight Poikilocytosis (manual Slight Anisocytosis (manual) Slight Sodium Potassium Chloride Carbon Dioxide Anion Gap BUN Creatinine Est GFR ( Amer) Est GFR (Non-Af Amer) POC Glucose (mg/dL) 294 H 241 H Random Glucose Calcium Total Bilirubin AST ALT Alkaline Phosphatase Total Protein Albumin Globulin Albumin/Globulin Ratio Urine Color Urine Clarity Urine pH Ur Specific [place] Urine Protein Urine Glucose (UA) Urine Ketones Urine Blood Urine Nitrate Urine Bilirubin Urine Urobilinogen Ur Leukocyte Esterase Urine WBC (Auto) Urine RBC (Auto) Ur Squamous Epith Cells 02/06/17 02/06/17 07:18 11:13 WBC RBC Hgb Hct MCV MCH MCHC RDW Plt Count MPV Neut % (Auto) Lymph % (Auto) [place] % (Auto) Eos % (Auto) Baso % (Auto) Neut # Lymph # [place] # Eos # Baso # Neutrophils % (Manual) Band Neutrophils % Lymphocytes % (Manual) Monocytes % (Manual) Eosinophils % (Manual) Basophils % (Manual) Platelet Estimate Hypochromasia (manual) Poikilocytosis (manual Anisocytosis (manual) Sodium 141 Potassium 3.9 Chloride 107 Carbon Dioxide 22 Anion Gap 16 BUN 27 H Creatinine 1.6 H Est GFR ( Amer) 50 Est GFR (Non-Af Amer) 42 POC Glucose (mg/dL) 295 H Random Glucose 211 H Calcium 7.9 L Total Bilirubin 0.9 AST 107 H D ALT 84 H Alkaline Phosphatase 67 Total Protein 6.3 Albumin 3.0 L Globulin 3.4 Albumin/Globulin Ratio 0.9 L Urine Color Urine Clarity Urine pH Ur Specific [place] Urine Protein Urine Glucose (UA) Urine Ketones Urine Blood Urine Nitrate Urine Bilirubin Urine Urobilinogen Ur Leukocyte Esterase Urine WBC (Auto) Urine RBC (Auto) Ur Squamous Epith Cells Intake & Output: Intake & Output 02/05/17 02/06/17 02/06/17 18:59 06:59 18:59 Intake Total 1480 Output Total 850 Balance 630 Intake: Intake, IV Amount 840 Right Forearm 840 Oral 640 Output: Urine 850 Urine, Voided 850 Other: # Bowel Movements 0 Vital Signs: Vital Signs - 24 hr 02/05/17 02/05/17 02/06/17 15:00 21:30 00:08 Temperature 98.2 F 98 F Pulse Rate 88 93 H 83 Respiratory 20 20 Rate Blood Pressure 144/73 159/83 H 156/79 H O2 Sat by Pulse 96 96 Oximetry 02/06/17 08:28 Temperature 98.1 F Pulse Rate 84 Respiratory 20 Rate Blood Pressure 177/75 H O2 Sat by Pulse 99 Oximetry - Physical Exam Abdominal Exam: Soft, Non-Tender, Non-Distended Back: No CVA Tenderness Genitalia: Without Inflammation Urine Color: Clear, Yellow - Plan Additional Information: IMP: UTI. UROLITHIASIS. L RENAL STONE. REC/PLAN: ANTIBIOTIC RX. PT WILL NEED FURTHER TREATMENT RE RENAL STONE,. POSS CYSTO STENT INSERTION. POSS ESWL. DISCUSSED W PT - Date & Time of Note Date: 02/06/17 Time: 11:34
--- NOTE | 2017-02-06 11:43 | US ---
Date of procedure: 02/05/2017 Procedure: Ultrasound guidance for vascular access HISTORY: Infection requiring long-term IV antibiotics TECHNIQUE: Following informed consent and procedure time-out, the patient placed supine on the interventional table and the right arm prepped and draped in the usual sterile fashion. Ultrasound showed a patent and compressible basilic vein. After the skin was anesthetized with lidocaine, the basilic vein was accessed with micro micropuncture technique using ultrasound guidance. An image documenting ultrasound guidance for vascular access was permanently saved. IMPRESSION: Ultrasound guidance for vascular access for placement of PICC.
--- NOTE | 2017-02-06 11:45 | RAD ---
PROCEDURE: Date of procedure: 02/05/2017 Procedure: 1. Placement of a right arm PICC with ultrasound and fluoroscopic guidance, CPT 03591 2. PICC tip confirmation with spot radiograph and is in the superior vena cava Medications: 1 percent lidocaine Total Fluoro time: 4.9 seconds Radiation: 2.396 mGy EBL: 2 cc HISTORY: Bacteremia requiring long-term IV antibiotics TECHNIQUE: Following informed consent and procedure time-out, the patient was placed supine on the interventional table and the right arm prepped and draped in the usual sterile fashion. Ultrasound showed a patent and compressible right basilic vein. After the skin was anesthetized with lidocaine, the basilic vein was accessed with micro micropuncture technique using ultrasound guidance. A guidewire was then advanced under fluoroscopic guidance into the superior vena cava. An image documenting ultrasound guidance for vascular access was permanently saved. The length of the single-lumen 5 Croatian PICC was trimmed to 39 centimeters and advanced through a peel-away sheath. The PICC was position with tip of PICC confirm a spot radiograph the superior vena cava. The PICC was secured to the patient's skin. The PICC was flushed. A biopatch and sterile dressing was applied. IMPRESSION: Placement of a single-lumen 5 Croatian PICC trimmed to 39 centimeters via right basilic vein. The tip of the PICC is confirmed with spot radiograph and is in the superior vena cava.
--- NOTE | 2017-02-06 13:11 | CP.PCM.DIS ---
Provider - Provider Date of Admission: 02/01/17 18:54 Attending physician: Lesley Mckeon MD Time Spent in preparation of Discharge (in minutes): 30 Hospital Course - Lab Results Lab Results: Micro Results 02/05/17 08:14 Urine,Clean Catch Urine Culture - Final No Growth (<1,000 CFU/ML) 02/05/17 06:20 Blood-Venous Blood Culture - Preliminary NO GROWTH AFTER 24 HOURS 02/05/17 05:55 Blood-Venous Blood Culture - Preliminary NO GROWTH AFTER 24 HOURS 02/02/17 Unknown Stool Stool Culture - Final NO SALMONELLA, SHIGELLA OR CAMPYLOBACTER ISOLATED. Most Recent Lab Values WBC 6.0 K/uL (4.8-10.8) 02/06/17 07:18 RBC 3.13 Mil/uL (4.40-5.90) L 02/06/17 07:18 Hgb 9.7 g/dL (12.0-18.0) L 02/06/17 07:18 Hct 28.4 % (35.0-51.0) L 02/06/17 07:18 MCV 90.5 fL (80.0-94.0) 02/06/17 07:18 MCH 30.9 pg (27.0-31.0) 02/06/17 07:18 MCHC 34.2 g/dL (33.0-37.0) 02/06/17 07:18 RDW 14.4 % (11.5-14.5) 02/06/17 07:18 Plt Count 150 K/uL (130-400) 02/06/17 07:18 MPV 8.6 fL (7.2-11.7) 02/06/17 07:18 Neut % (Auto) 78.8 % (50.0-75.0) H 02/06/17 07:18 Lymph % (Auto) 8.3 % (20.0-40.0) L 02/06/17 07:18 Roberts % (Auto) 8.9 % (0.0-10.0) 02/06/17 07:18 Eos % (Auto) 3.1 % (0.0-4.0) 02/06/17 07:18 Baso % (Auto) 0.9 % (0.0-2.0) 02/06/17 07:18 Neut # 4.8 K/uL (1.8-7.0) 02/06/17 07:18 Lymph # 0.5 K/uL (1.0-4.3) L 02/06/17 07:18 Roberts # 0.5 K/uL (0.0-0.8) 02/06/17 07:18 Eos # 0.2 K/uL (0.0-0.7) 02/06/17 07:18 Baso # 0.1 K/uL (0.0-0.2) 02/06/17 07:18 Neutrophils % (Manual) 74 % (50-75) 02/06/17 07:18 Band Neutrophils % 1 % (0-2) 02/06/17 07:18 Lymphocytes % (Manual) 14 % (20-40) L 02/06/17 07:18 Monocytes % (Manual) 6 % (0-10) 02/06/17 07:18 Eosinophils % (Manual) 3 % (0-4) 02/06/17 07:18 Basophils % (Manual) 2 % (0-2) 02/06/17 07:18 Myelocytes % 1 % (0-0) H 02/05/17 06:37 Platelet Estimate Normal (NORMAL) 02/06/17 07:18 RBC Morphology Normal 02/02/17 07:24 Hypochromasia (manual) Slight 02/06/17 07:18 Poikilocytosis (manual Slight 02/06/17 07:18 Anisocytosis (manual) Slight 02/06/17 07:18 Ovalocytes Slight 02/05/17 06:37 ESR 76 mm/hr (0-15) H 02/02/17 07:24 PT 16.8 SECONDS (9.7-12.2) H 02/01/17 16:26 INR 1.5 02/01/17 16:26 APTT 28 SECONDS (21-34) 02/01/17 16:26 pO2 17 mm/Hg (30-55) L 02/01/17 19:05 VBG pH 7.36 (7.32-7.43) 02/01/17 19:05 VBG pCO2 37 mmHg (40-60) L 02/01/17 19:05 VBG HCO3 19.8 mmol/L 02/01/17 19:05 VBG Total CO2 22.0 mmol/L (22-28) 02/01/17 19:05 VBG O2 Sat (Calc) 26.9 % (40-65) L 02/01/17 19:05 VBG Base Excess -4.0 mmol/L (0.0-2.0) L 02/01/17 19:05 VBG Potassium 4.0 mmol/L (3.6-5.2) 02/01/17 19:05 Sodium 139.0 mmol/l (132-148) 02/01/17 19:05 Chloride 108.0 mmol/L (98-107) H 02/01/17 19:05 Glucose 289 mg/dl (75-110) H 02/01/17 19:05 Lactate 2.8 mmol/L (0.7-2.1) H 02/01/17 19:05 Crit Value Called To Dr joyce beach 02/01/17 16:20 Crit Value Called By Velma serra 02/01/17 16:20 Crit Value Read Back Y 02/01/17 16:20 Blood Gas Notified Time 1625 02/01/17 16:20 Sodium 141 mmol/L (132-148) 02/06/17 07:18 Potassium 3.9 mmol/L (3.6-5.2) 02/06/17 07:18 Chloride 107 mmol/L (98-107) 02/06/17 07:18 Carbon Dioxide 22 mmol/L (22-30) 02/06/17 07:18 Anion Gap 16 (10-20) 02/06/17 07:18 BUN 27 mg/dL (9-20) H 02/06/17 07:18 Creatinine 1.6 MG/DL (0.8-1.5) H 02/06/17 07:18 Est GFR ( Amer) 50 02/06/17 07:18 Est GFR (Non-Af Amer) 42 02/06/17 07:18 POC Glucose (mg/dL) 295 mg/dL (65-110) H 02/06/17 11:13 Random Glucose 211 mg/dL (75-110) H 02/06/17 07:18 Calcium 7.9 mg/dl (8.6-10.4) L 02/06/17 07:18 Phosphorus 2.0 mg/dL (2.5-4.5) L 02/01/17 16:26 Magnesium 1.5 mg/dL (1.6-2.3) L 02/01/17 16:26 Total Bilirubin 0.9 mg/dL (0.2-1.3) 02/06/17 07:18 Direct Bilirubin 0.4 mg/dL (0.0-0.4) 02/02/17 07:24 AST 107 U/L (17-59) H D 02/06/17 07:18 ALT 84 U/L (21-72) H 02/06/17 07:18 Alkaline Phosphatase 67 U/L (38-126) 02/06/17 07:18 Total Creatine Kinase 432 U/L (55-170) H 02/01/17 16:46 Troponin I < 0.0120 ng/mL (0.00-0.120) 02/01/17 16:46 C-React Prot High Sens > 15.00 mg/L (1.00-3.00) H 02/02/17 07:24 Total Protein 6.3 g/dL (6.3-8.3) 02/06/17 07:18 Albumin 3.0 g/dL (3.5-5.0) L 02/06/17 07:18 Globulin 3.4 gm/dL (2.2-3.9) 02/06/17 07:18 Albumin/Globulin Ratio 0.9 (1.0-2.1) L 02/06/17 07:18 Venous Blood Potassium 4.0 mmol/L (3.6-5.2) 02/01/17 19:05 Urine Color Yellow (YELLOW) 02/05/17 18:21 Urine Clarity Clear (Clear) 02/05/17 18:21 Urine pH 6.0 (5.0-8.0) 02/05/17 18:21 Ur Specific Coin 1.012 (1.003-1.030) 02/05/17 18:21 Urine Protein Negative mg/dL (NEGATIVE) 02/05/17 18:21 Urine Glucose (UA) 1+ mg/dL (Normal) H 02/05/17 18:21 Urine Ketones Trace mg/dL (NEGATIVE) 02/05/17 18:21 Urine Blood 2+ (NEGATIVE) H 02/05/17 18:21 Urine Nitrate Negative (NEGATIVE) 02/05/17 18:21 Urine Bilirubin Negative (NEGATIVE) 02/05/17 18:21 Urine Urobilinogen Normal mg/dL (0.2-1.0) 02/05/17 18:21 Ur Leukocyte Esterase Trace Seema/uL (Negative) 02/05/17 18:21 Urine WBC (Auto) 4 /hpf (0-5) 02/05/17 18:21 Urine RBC (Auto) 22 /hpf (0-3) H 02/05/17 18:21 Ur Squamous Epith Cells < 1 /hpf (0-5) 02/05/17 18:21 Amorphous Sediment Rare /ul (<OCC) H 02/01/17 17:36 Urine Bacteria Mod (<OCC) H 02/01/17 17:36 Serum Ketones Negative (NEGATIVE) 02/01/17 16:46 C. difficile Ag & Toxin Negative (NEGATIVE) 02/02/17 Unknown - Hospital Course Hospital Course: ADMITTED WITH CODE SEPSIS PT WAS FOUNG ON FLOOR BY DISORIENTED . W/U SHOWED UTI WITH TEMP. 102F AND DEHYDRATION . PT HAS PRIOUS H/O UTI S. PT RESPONDED WITH IV FLUIDS AND IV AB PAST HIST. HTN/DM/HIGH CHOLESTEROL /COPD BLOOD CULT. POS FOR E. COLI CT ABD , RENAL STONES WITH NO HYDRO ID/ CONSULTED PT RESPONDED WITH IV AB/FLUIDS AND MENTAL STATUS NORMALIZED PT IS TRANSFERRED TO [facility] FOR 2 WEEKS AB WILL NEED F/U FOR ECWLS FOR STONE Discharge Exam - Head Exam Head Exam: NORMAL INSPECTION Discharge Plan - Follow Up Plan Condition: GUARDED Disposition: HOME/ ROUTINE
[2017-02-06 16:20] VITALS: BP 148/80; O2SAT 98
[2017-02-06 21:32] LABS: TOTAL PSA 4.9 ng/mL (<=4.0)
--- NOTE | 2017-02-07 21:19 | CARD ---
APPROVED REPORT EKG Measurement Heart [id number] 170P43 [id number] <Conclusion> Sinus tachycardia Septal infarct, age undetermined Inferior infarct, age undetermined Nonspecific T wave abnormality Abnormal ECG
== END 2017-02-06 16:40 | DRG 871 ==
LOC: C.ER 15:23 → C.9E 18:54 → C.6T 20:29 → C.3T 02-05 13:27
PROVIDERS: ADMIT Internal Medicine Cardiovascular Disease; ATTEND Internal Medicine Cardiovascular Disease
PROC: 02HV33Z Insertion of Infusion Device into Superior Vena Cava, Percutaneous Approach (ICD-10-PCS; principal; 2017-02-05)
DX: A41.51 Sepsis due to Escherichia coli [E. coli] (principal); R65.21 Severe sepsis with septic shock; J44.9 Chronic obstructive pulmonary disease, unspecified; E66.01 Morbid (severe) obesity due to excess calories; N12 Tubulo-interstitial nephritis, not specified as acute or chronic; E11.9 Type 2 diabetes mellitus without complications; I10 Essential (primary) hypertension; E78.00 Pure hypercholesterolemia, unspecified; N41.9 Inflammatory disease of prostate, unspecified; Z79.4 Long term (current) use of insulin; Z96.653 Presence of artificial knee joint, bilateral; N40.1 Benign prostatic hyperplasia with lower urinary tract symptoms; G47.39 Other sleep apnea; R35.0 Frequency of micturition

== ENCOUNTER 2017-07-22 06:43 | Day surgery (SDC) | payer MEDICARE, BC ==
[2017-06-07 13:25] VITALS: BMI 36.6
[2017-07-22] MEDS ORDERED: Lidocaine 2% Jelly (Uro-Jet) ONE (10:28)
[2017-07-22] MEDS ORDERED: Iohexol 240 (50 ml) ONE (10:28)
[2017-07-22] MEDS ORDERED: Lactated Ringer's 1,000 ML IV ONE (10:33)
[2017-07-22] MEDS ORDERED: Propofol 10 mg/ml Inj (20 ML) ONE (10:42)
--- NOTE | 2017-07-22 11:01 | PCM.SURG1 ---
Surgeon's Initial Post Op Note - Surgeon's Notes Surgeon: Luis E Prado Biological Lab Technician: none Type of Anesthesia: IV Sedation Pre-Operative Diagnosis: Urolithiasis Operative Findings: same Post-Operative Diagnosis: L renal calculi. Bladder calculus Operation Performed: cysto. removal of L ureteral stent. removal of bladder calculus Specimen/Specimens Removed: urine Estimated Blood Loss: EBL {In ML}: 0 Blood Products Given: N/A Drains Used: No Drains Post-Op Condition: Good Date of Surgery/Procedure: 07/22/17 Time of Surgery/Procedure: 10:55
[2017-07-22] MEDS ORDERED: Gentamicin 80 mg in 0.9% NS 80 MG/100 ML BAG IVPB ONE (11:02)
[2017-07-22] MEDS ORDERED: HYDROmorphone 0.5 mg/0.5 ml ISec IVP PRN (11:18)
[2017-07-22] MEDS ORDERED: Lactated Ringer's 1,000 ML IV SCH (11:30)
[2017-07-22 12:29] VITALS: RESP 16
--- NOTE | 2017-07-22 14:23 | RAD ---
PROCEDURE: Intraoperative Fluoroscopy. HISTORY: LT. RENAL CALCULI FINDINGS: Fluoroscopic assistance was provided for left stent removal. Total fluoroscopic time (continuous mode) utilized during the procedure: 2.2 seconds.. Please refer to the operative report from
[2017-07-22 14:34] VITALS: BP 133/64; PULSE 65; TEMP 97.4; O2SAT 100
--- NOTE | 2017-07-22 16:52 | RAD ---
HISTORY: LT. RENAL CALCULI COMPARISON: 06/27/2017 FINDINGS: BOWEL: Normal. No obstruction. No free air. BONES: Normal. OTHER FINDINGS: Double-J stent catheter again identified on the left unchanged with respect configuration. Renal calculus disease on the left. Calculi approximately stable the larger of the 2 measuring 12.8 mm, the smaller 10.9 mm. No new calculi identified. IMPRESSION: No significant interval change compared to the prior examination(s).
--- NOTE | 2017-07-24 22:09 | OP ---
PROCEDURE DATE: 07/22/2017 PREOPERATIVE DIAGNOSIS: Urolithiasis. POSTOPERATIVE DIAGNOSIS: Urolithiasis. PROCEDURE: Cystoscopy. Removal of ureteral stent. Removal of bladder stone. SURGEON: Jeanne Prado MD DESCRIPTION OF PROCEDURE: The patient was placed in lithotomy position. The patient received perioperative antibiotics. Administrative Officer film of the abdomen had been performed. There was residual left renal stones. The were 3 areas of stones within the calyces, each approximately 1 cm in size. The patient received anesthesia. The patient was in lithotomy position. Genitalia prepped and draped sterilely. A 22-German cystoscope sheath was introduced under direct vision. Urethra, prostate and bladder were inspected with 30-degree lens. FINDINGS: There was no stricture in the anterior urethra. The prostatic urethra was occlusive secondary to lateral lobe hypertrophy. There was no bladder tumor. There was no bladder stone. There was mild bladder trabeculation. Left ureteral stent was identified. The stent was grasped with rigid grasping forceps and removed intact. Proposed stent removal fluoroscopy revealed the residual stones. The bladder was reinspected with 70-degree lens and confirmed the above findings. The bladder was then drained. Cystoscope sheath removed. Rectal examination was performed. Prostate was supple and smooth, approximately 30 gm in size, without fixation, induration or nodularity. The patient tolerated the procedure without complication. Jeanne Prado MD cc: Jeanne Prado MD Dr.
== END 2017-07-22 14:02 | disposition home or self-care (01) ==
LOC: C.SDS 06:43
PROVIDERS: ATTEND Urology
DX: N21.0 Calculus in bladder (principal); I10 Essential (primary) hypertension; E11.9 Type 2 diabetes mellitus without complications
CPT/HCPCS: 52310; 74022; 76000; 82948; 87086; J0696; J1580; J7120

== ENCOUNTER 2018-08-02 14:47 | Emergency (ER) | payer MEDICARE, BC ==
[2018-08-02 14:47] VITALS: BMI 36.6
[2018-08-02 14:57] VITALS: O2SAT 98
[2018-08-02] MEDS ORDERED: Sodium Chloride 0.9% 1,000 ML IV STA (15:20)
[2018-08-02 15:35] LABS: EOS % 0.2 % (0.0-4.0); HEMOGLOBIN 11.5 g/dL (12.0-18.0); LYMPH # 0.5 K/uL (1.0-4.3); LYMPH % 9.5 % (20.0-40.0); MEAN CELL VOLUME 88.2 fL (80.0-94.0); MEAN CORPUSCULAR HEMOGLOBIN 30.1 pg (27.0-31.0); MEAN CORPUSCULAR HGB CONC 34.1 g/dL (33.0-37.0); MEAN PLATELET VOLUME 8.6 fL (7.2-11.7); MONO # 0.6 K/uL (0.0-0.8); MONO % 12.1 % (0.0-10.0); NEUT # 3.8 K/uL (1.8-7.0); NEUT % 77.2 % (50.0-75.0); PLATELET COUNT 140 K/uL (130-400); RBC 3.82 Mil/uL (4.40-5.90)
--- NOTE | 2018-08-02 15:37 | C.PDOC ---
History Of Present Illness 83 years old male with PMHx of HTN and diabetes presents to ED for complaints of bodyaches and sweats that began 3 days ago. Denies stiff neck, chest pain, cough, shortness of breath, abdominal pain, nausea, vomiting, diarrhea, dysuria, recent travel, or sick contacts. Patient did not take antipyretics [employer] UN[employer]. PMD: * Velma Curran. Time Seen by Provider: 08/02/18 15:05 Chief Complaint (Nursing): Shortness Of Breath History Per: Patient History/Exam Limitations: no limitations Onset/Duration Of Symptoms: Hrs Current Symptoms Are (Timing): Still Present Current Respiratory Medications: See Home Med List Associated Symptoms: Sweating Recent travel outside of the [place]: No Past Medical History Reviewed: Historical Data, Nursing Documentation, Vital Signs Vital Signs: Last Vital Signs Temp 97.6 F 08/02/18 14:55 Pulse 85 08/02/18 14:55 Resp 20 08/02/18 14:55 BP 123/73 08/02/18 14:55 Pulse Ox 98 08/02/18 14:55 - Medical History PMH: Diabetes, HTN, Hypercholesterolemia, Kidney Stones, Chronic Kidney Disease Surgical History: Endoscopy - [facility] Procedures INSERTION OF INFUSION DEV INTO SUP VENA CAVA, PERC APPROACH (02/01/17) Family History: States: Unknown Family Hx - Social History Hx Tobacco Use: No Hx Alcohol Use: No Hx Substance Use: No - Immunization History Hx Tetanus Toxoid Vaccination: No Hx Influenza Vaccination: Yes Hx Pneumococcal Vaccination: Yes Review Of Systems Except As Marked, All Systems Reviewed And Found Negative. Cardiovascular: Negative for: Chest Pain Genitourinary: Negative for: Dysuria Physical Exam - Physical Exam Additional Physical Exam Comments: Constitutional: No acute distress. Head: Normocephalic. Atraumatic. Eyes: PERRL. Left eye positive ptosis. ENT: Moist mucous membranes. Neck: Supple. No no nuchal rigidity. Cardiovascular: Regular rate. Radial pulse 2+ bilaterally. Chest: No tenderness. Respiratory: Clear to auscultation bilaterally. GI: Soft. Nontender. Nondistended. Back: No CVA tenderness. Musculoskeletal: No tenderness or swelling of extremities. Skin: No rash. Neurologic: Alert, no focal deficit. ED Course And Treatment - Laboratory Results Result Diagrams: 08/02/18 15:32 08/02/18 15:32 O2 Sat by Pulse Oximetry: 98 (RA ) Pulse Ox Interpretation: Normal Medical Decision Making Medical Decision Making: Plan: * IV Fluids * Toradol * Blood work * EKG * CXR * Urine Culture Urinalysis * Flu AB Swab EKG: * Normal sinus rhythm at 83 bpm * No ST elevations CXR: Date of service: 08/02/2018 HISTORY: body aches COMPARISON: 06/07/2017 TECHNIQUE: Chest PA and lateral FINDINGS: LUNGS: No active pulmonary disease. PLEURA: No significant pleural effusion identified. No pneumothorax apparent. CARDIOVASCULAR: No aortic atherosclerotic calcification present. Normal cardiac size. No pulmonary vascular congestion. OSSEOUS STRUCTURES: No significant abnormalities. VISUALIZED UPPER ABDOMEN: Normal. OTHER FINDINGS: None. IMPRESSION: No active disease. Patient appears well, wishes to go home. Will discharge, continue hydration, antibiotics administered, urine culture sent, f/u Dr. baker in office, instructed to return to ED for worsening pain, fever, vomiting, dyspnea, or any other problem. Disposition - Disposition Referrals: Lesley Baker MD [Staff Provider] - Disposition: HOME/ ROUTINE Disposition Time: 17:05 Condition: STABLE Prescriptions: Ciprofloxacin [Cipro] 500 mg PO BID #14 tab Instructions: Dehydration, Adult (DC) Forms: [employer] ([place]) - Clinical Impression Clinical Impression: Dehydration - Scribe Statement The provider has reviewed the documentation as recorded by the Scribyuval Medrano All medical record entries made by the Scribe were at my direction and personally dictated by me. I have reviewed the chart and agree that the record accurately reflects my personal performance of the history, physical exam, medical decision making, and the department course for this patient. I have also personally directed, reviewed, and agree with the discharge instructions and disposition.
[2018-08-02 15:50] LABS: ALB/GLOB RATIO 1.2 (1.0-2.1); ALBUMIN 4.1 g/dL (3.5-5.0); ALT/SGPT 64 U/L (21-72); AST/SGOT 50 U/L (17-59); BLOOD UREA NITROGEN 28 mg/dL (9-20); CALCIUM 8.8 mg/dl (8.6-10.4); GFR NON-AFRICAN AMERICAN 26; LIPASE 189 U/L (23-300)
[2018-08-02 15:56] LABS: SQUAMOUS EPITHIAL 4 /hpf (0-5); URINE BACTERIA RARE (<OCC); URINE BILIRUBIN NEGATIVE (NEGATIVE); URINE BLOOD NEGATIVE (NEGATIVE); URINE CLARITY Hazy (Clear); URINE COLOR Amber (YELLOW); URINE GLUCOSE (UA) 1+ mg/dL (Normal); URINE HYALINE CAST >20 /lpf (0-2); URINE LEUKOCYTE ESTERASE TRACE Leu/uL (Negative); URINE PROTEIN 1+ mg/dL (NEGATIVE)
[2018-08-02] MEDS ORDERED: Sodium Chloride 0.9% 1,000 ML ONE (15:57)
--- NOTE | 2018-08-02 16:01 | RAD ---
Date of service: 08/02/2018 HISTORY: body aches COMPARISON: 06/07/2017 TECHNIQUE: Chest PA and lateral FINDINGS: LUNGS: No active pulmonary disease. PLEURA: No significant pleural effusion identified. No pneumothorax apparent. CARDIOVASCULAR: No aortic atherosclerotic calcification present. Normal cardiac size. No pulmonary vascular congestion. OSSEOUS STRUCTURES: No significant abnormalities. VISUALIZED UPPER ABDOMEN: Normal. OTHER FINDINGS: None. IMPRESSION: No active disease.
[2018-08-02 16:02] LABS: CK-MB 0.93 ng/mL (0.0-3.38)
[2018-08-02 16:48] LABS: HYPERSEGMENTATION PRESENT; LARGE PLATELETS PRESENT; LYMPHOCYTE 13 % (20-40); MONOCYTE 3 % (0-10); NEUTROPHIL 84 % (50-75); PLATELET ESTIMATE SLIGHTLY DECREASED (NORMAL); TOTAL CELLS COUNTED 100
[2018-08-02 17:27] VITALS: BP 133/63; PULSE 78; RESP 18; TEMP 98.4
--- NOTE | 2018-08-04 20:51 | CARD ---
APPROVED REPORT Date of service: 08/02/2018 EKG Measurement Heart [id number] 180P35 [id number] <Conclusion> Normal sinus rhythm Inferior infarct, age undetermined Abnormal ECG
== END 2018-08-02 17:25 | disposition home or self-care (01) ==
LOC: C.ER 14:47
DX: E86.0 Dehydration (principal); E78.00 Pure hypercholesterolemia, unspecified; I12.9 Hypertensive chronic kidney disease with stage 1 through stage 4 chronic kidney disease, or unspecified chronic kidney disease; N18.9 Chronic kidney disease, unspecified; E11.9 Type 2 diabetes mellitus without complications
CPT/HCPCS: 71046; 80053; 81001; 82550; 82553; 82948; 83690; 84484; 85025; 87086; 87181; 87804; 93005; 96361; 96374; 99285; J1885; J7030